=== PATIENT | male | born 1960 | race Caucasian/White ===

== ENCOUNTER → 2018-01-30 14:07 | Outpatient (CLI) | payer MEDICARE, SELFPAY ==
[2018-01-30 14:29] LABS: Basophils # 0.1 K/mm3 (0-0.2); Basophils % 1.2 % (0.1-2.0); Eosinophils # 0.4 K/mm3 (0.0-0.4); Eosinophils % 3.6 % (0.1-12.0); Hematocrit 53.5 % (42.0-52.0); Hemoglobin 16.6 g/dL (14.1-18.0); Lymphocytes # 2.6 K/mm3 (0.7-4.5); Lymphocytes % 27.2 K/mm3 (10-50); Mean Corpuscular Hemoglobin 29.3 pg (27.0-31.2); Mean Corpuscular Volume 94.4 fl (80-94); Mean Platelet Volume 7.2 fl (7.4-10.4); Monocytes # 0.4 K/mm3 (0.1-1.0); Monocytes % 4.3 % (1.7-9.3); Neutrophils # 6.1 K/mm3 (1.8-7.8); Neutrophils % 63.6 % (37.0-80.0); Platelet Count 220 K/mm3 (142-424); Red Blood Count 5.67 M/mm3 (4.60-6.20); Red Cell Distribution Width 13.6 % (11.5-17.5); White Blood Count 9.6 K/mm3 (4.8-10.8)
[2018-01-30 14:59] LABS: Anion Gap 11.8 mEq/L (5-15); Blood Urea Nitrogen 4 mg/dL (7-18); Calcium 8.6 mg/dL (8.5-10.1); Carbon Dioxide 32 mmol/L (21.0-32.0); Chloride 97 mmol/L (98-107); Creatinine,Serum 0.96 mg/dL (0.70-1.30); Estimated Glomerular Filt Rate 81 ml/min (>60); GFR (African American) 98 ML/MIN (>60); Glucose 294 mg/dL (74-106); Potassium 3.8 mmoL/L (3.5-5.1); Sodium 137 mmol/L (136-145)
== END ==
PROVIDERS: Visit Provider Surgery
DX: Z01.818 Encounter for other preprocedural examination (principal); L03.90 Cellulitis, unspecified; L02.91 Cutaneous abscess, unspecified
CPT/HCPCS: 36415; 80048; 85025; 93005

== ENCOUNTER → 2018-07-03 18:15 | Outpatient (CLI) | payer MEDICARE, SELFPAY ==
[2018-07-03 19:15] LABS: Hemoglobin A1C 8.6 % (0.0-7.0)
== END ==
PROVIDERS: Visit Provider Nurse Practitioner Family
DX: R73.9 Hyperglycemia, unspecified (principal)
CPT/HCPCS: 83036

== ENCOUNTER → 2018-09-04 07:24 | Outpatient (CLI) | payer MEDICARE, SELFPAY ==
[2018-09-05 07:49] LABS: Basophils # 0.1 K/mm3 (0-0.2); Basophils % 1.2 % (0.1-2.0); Eosinophils # 0.2 K/mm3 (0.0-0.4); Eosinophils % 2.3 % (0.1-12.0); Hematocrit 56.9 % (42.0-52.0); Hemoglobin 17.5 g/dL (14.1-18.0); Lymphocytes # 2.3 K/mm3 (0.7-4.5); Lymphocytes % 26.1 % (10-50); Mean Corpuscular HGB Conc 30.7 g/dL (31.8-35.4); Mean Corpuscular Hemoglobin 30.9 pg (27.0-31.2); Mean Corpuscular Volume 100.8 fl (80-94); Mean Platelet Volume 9.8 fl (7.4-10.4); Monocytes # 0.5 K/mm3 (0.1-1.0); Monocytes % 6.1 % (1.7-9.3); Neutrophils # 5.7 K/mm3 (1.8-7.8); Neutrophils % 64.4 % (37.0-80.0); Platelet Count 236 K/mm3 (142-424); Red Blood Count 5.64 M/mm3 (4.60-6.20); Red Cell Distribution Width 13.6 % (11.5-17.5); White Blood Count 8.8 K/mm3 (4.8-10.8)
[2018-09-05 08:12] LABS: Alanine Aminotransferase 19 U/L (12-78); Albumin Level 3.4 gm/dL (3.4-5.0); Albumin/Globulin Ratio 0.8 (1.1-1.8); Alkaline Phosphatase 138 U/L (46-116); Anion Gap 11.7 mEq/L (5-15); Aspartate Amino Transferase 11 U/L (15-37); Bilirubin,Total 0.4 mg/dL (0.2-1.0); Blood Urea Nitrogen 5 mg/dL (7-18); Calcium 9.7 mg/dL (8.5-10.1); Carbon Dioxide 33 mmol/L (21.0-32.0); Chloride 100 mmol/L (98-107); Cholesterol 289 mg/dL (140-200); Creatinine,Serum 0.91 mg/dL (0.70-1.30); Estimated Glomerular Filt Rate 86 ml/min (>60); Free T4 (Free Thyroxine) 1.06 ng/dl (0.76-1.46); GFR (African American) 104 ML/MIN (>60); Globulin 4.4 gm/dl (1.3-3.2); Glucose 248 mg/dL (74-106); HDL Cholesterol 24 mg/dL (27-67); LDL Cholesterol 209 mg/dL (0-130); Potassium 4.7 mmoL/L (3.5-5.1); Sodium 140 mmol/L (136-145); Thyroid Stimulating Hormone 1.19 uIU/ml (0.358-3.740); Total Protein,Serum 7.8 gm/dL (6.4-8.2); Triglycerides 280 mg/dL (30-200); VLDL Cholesterol 56 mg/dL (0-40)
[2018-09-05 09:40] LABS: Hemoglobin A1C 8.7 % (0.0-7.0)
[2018-09-06 09:31] LABS: Vitamin D 25 Hydroxy 6.1 ng/mL (30.0-100.0)
[2018-09-07 11:17] LABS: Folate 9.9 ng/mL (>3.0)
[2018-09-10 08:34] LABS: Vitamin B12 522 pg/mL (232-1245)
== END ==
PROVIDERS: Visit Provider Emergency Medicine
DX: E11.9 Type 2 diabetes mellitus without complications (principal); R79.89 Other specified abnormal findings of blood chemistry
CPT/HCPCS: 80053; 80061; 82607; 82652; 82746; 83036; 84439; 84443; 85025

== ENCOUNTER → 2019-01-01 17:43 | Outpatient (CLI) | payer MEDICARE, SELFPAY ==
[2019-01-01 21:57] LABS: Anion Gap 13.9 mEq/L (5-15); Blood Urea Nitrogen 7 mg/dL (7-18); Carbon Dioxide 30 mmol/L (21.0-32.0); Chloride 98 mmol/L (98-107); Creatinine,Serum 0.84 mg/dL (0.70-1.30); Estimated Glomerular Filt Rate 94 ml/min (>60); GFR (African American) 114 ML/MIN (>60); Glucose 248 mg/dL (74-106); Potassium 3.9 mmoL/L (3.5-5.1); Sodium 138 mmol/L (136-145)
== END ==
PROVIDERS: Visit Provider Emergency Medicine
DX: E11.9 Type 2 diabetes mellitus without complications (principal); Z79.84 Long term (current) use of oral hypoglycemic drugs
CPT/HCPCS: 80048; 83036

== ENCOUNTER → 2019-04-05 13:26 | Outpatient (CLI) | payer MEDICARE, MEDICAID, SELFPAY ==
--- NOTE | 2019-04-05 13:27 | CA_ITS ---
APPROVED REPORT Transit Planner: KRISTI Laterality: Bilateral Study Quality: Adequate Indications: Bruit, Hx of left endarterectomy Risk Factors Hypertension: TIA/CVA History Hyperlipidemia Diabetes Diabetes, Smoking Surgery/Intervention Endarterectomy: left Doppler Spectral Velocity Analysis ECA (R) 164.00/44.90 cm/s ECA (L) 189.00/43.40 cm/s dCCA (R) 73.90/23.60 cm/s dICA (L) 76.90/27.60 cm/s pCCA (R) 77.80/19.60 cm/s Anil (L) 46.80/21.70 cm/s pICA (L) 64.30/16.70 cm/s dCCA (L) 81.40/35.10 cm/s pCCA (L) 103.00/26.30 cm/s Vert (L) 57.50/29.50 cm/s ICA/CCA 0.94 Findings Study shows 100% occlusion involving the right internal carotid artery. No change from the study on 08/31/11. No color flow or doppler waveform seen right vertebral artery, ? occlusion. Left common and internal carotid artery shows abnormal colorflow suggesting possible disease, doppler waveforms are normal. Recommend futher testing. Electronically signed by : Juan Dumont MD 04/10/2019 19:42:35
== END ==
PROVIDERS: PCP Emergency Medicine; Visit Provider Emergency Medicine
DX: R09.89 Other specified symptoms and signs involving the circulatory and respiratory systems (principal)
CPT/HCPCS: 93880

== ENCOUNTER → 2019-04-19 11:38 | Outpatient (CLI) | payer MEDICARE, MEDICAID, SELFPAY ==
--- NOTE | 2019-04-19 11:39 | MR_ITS ---
PROCEDURE: MR HEAD/BRAIN WO CON CLINICAL INDICATION: post head contusion Headache and dizziness following injury, memory loss COMPARISON: CT HEAD/BRAIN WO CON from 04/04/2019 TECHNIQUE: Routine multiplanar multi echo sequences are performed without gadolinium enhancement. FINDINGS: No midline shift, mass effect, intracranial hemorrhage, or hydrocephalus. No evidence of acute infarction. There are scattered periventricular and subcortical T2 white matter hyperintensities. A few of these are oriented perpendicular to the longitudinal plane of the lateral ventricles. The these areas do not demonstrate any restricted diffusion. The cerebellopontine angles, cerebellum, and brainstem are unremarkable. The pituitary, corpus callosum, optic chiasm, and craniocervical junction have an unremarkable appearance. No mastoid effusion or sinus air-fluid level. IMPRESSION: 1. There are scattered periventricular and subcortical T2 white matter hyperintensities. This may represent periventricular ischemic gliotic change from microvascular disease. A few of these are oriented perpendicular to the longitudinal plane of the lateral ventricles which could also be seen with multiple sclerosis. Please correlate with clinical parameters. Migraine headache is an additional consideration.. 2. Otherwise negative MRI of the brain without contrast Dictated by: Juan Dumont MD 04/20/2019 19:28 Electronically signed by Juan Dumont MD in [place] 04/22/2019 06:31
--- NOTE | 2019-04-19 11:39 | MR_ITS ---
PROCEDURE: MR CERVICAL SPINE WO CON CLINICAL INDICATION: neck pain Left-sided neck pain, left arm pain COMPARISON: CT CERVICAL SPINE WO CON from 04/04/2019 TECHNIQUE: Standard multiplanar multiecho sequences are performed without contrast. 3-D MIP and myelographic images are also rendered and reviewed FINDINGS: There straightening of the cervical lordosis. The cranial cervical junction has an unremarkable appearance. C2-C3: Mild bilateral foraminal narrowing from uncovertebral hypertrophy. There narrowing of the canal at 10 mm. C3-C4: Degenerate disc disease with bulging disc with canal stenosis of 9 mm. There is minimal contour deformity of the cord anteriorly. Moderate bilateral foraminal narrowing from uncovertebral hypertrophy greater on the left. C4-C5: Postsurgical changes with fusion of the vertebral body at C4-C5. Posterior osteophytes are present at this level. There is canal stenosis of 9 mm with. There is bilateral lateral recess and foraminal narrowing. C5-C6: Degenerate disc disease with bulging disc with canal stenosis of 8 mm with severe bilateral lateral recess and foraminal narrowing C6-C7: There is a small right paracentral/foraminal disc protrusion causing right lateral recess and foraminal narrowing. C7-T1: Unremarkable. IMPRESSION: Abnormal MRI of the cervical spine with multilevel canal stenosis lateral recess and foraminal narrowing. Please see above for detailed description at each level. Small right paracentral/foraminal disc protrusion at C6-C7 Dictated by: Juan Dumont MD 04/21/2019 07:06 Electronically signed by Juan Dumont MD in [place] 04/22/2019 06:44
== END ==
PROVIDERS: PCP Emergency Medicine; Visit Provider Emergency Medicine
DX: S09.90XA Unspecified injury of head, initial encounter (principal); S16.1XXA Strain of muscle, fascia and tendon at neck level, initial encounter
CPT/HCPCS: 70551; 72141; 76376

== ENCOUNTER → 2019-05-01 08:12 | Outpatient (CLI) | payer MEDICARE, MEDICAID, SELFPAY ==
--- NOTE | 2019-05-01 08:13 | CA_ITS ---
APPROVED REPORT EXAM: Comprehensive 2D, Doppler, and color-flow Echocardiogram Sterile Tech: Silva Mario CRT Ht: 3 ft 6 in Wt: 147lbs BSA: 1.26 BP: 120/76 mmHg Indications: Shortness of Breath, CAD, COPD, smoker, DM, HTN, hyperlipidemia 2D Dimensions LVOT 1.80 cm (M/F) 1.5-2.5 M-Mode Dimensions RVDd 2.60 cm (0.9-2.6) LA Diam 3.30 cm (1.9-4.0) LVDd 4.40 cm (3.5-5.7) Ao Diam 3.30 cm (2.0-3.7) LVDs 3.10 cm (3.5-5.7) AV Cusp 1.60 cm (1.5-2.6) IVSd 1.20 cm (0.6-1.1) PWd 0.90 cm (0.6-1.1) EF (Teich) 56.80% FS 29.50% EDV (Teich) 87.70 mL ESV (Teich) 37.90 mL LV Diastology E/A Ratio 0.90 MED E' 5.65 (< 7 cm/sec) E'/MED E' Ratio 13.30 (>14) LAT E' 6.73 (<10 cm/sec) E/LAT E' Ratio 11.10 (>14) Aortic Valve AoV Peak Anibal. 187.00 (50-130 cm/s) AO Peak GR. 14.00 mmHg Mitral Valve MV E Max Anibal. 75.00 (40-130 cm/s) MV A Velocity 82.40 (40-130 cm/s) E/A Ratio 0.90 Pulmonary Valve MO End VMAX 143.00 cm/s PA Accel Time 183.00 (>120 msec) Tricuspid Valve TR P. Velocity 164.00 cm/s Left Ventricle Left atrium is mildly enlarged, left ventricle is normal size, mild concentric left ventricular hypertrophy, visually estimated ejection fraction 55% with no regional wall motion abnormality, grade 1 diastolic dysfunction seen with tissue Doppler evidence of raise left atrial pressure. Right Ventricle Right atrium and right ventricle mildly enlarged with normal contractility. Aortic Valve Aortic valve is minimally thickened and fibrosed, there is no aortic stenosis, there is no aortic insufficiency. Mitral Valve Mitral valve is grossly normal, there is mild mitral regurgitation. Tricuspid Valve Tricuspid valve is grossly normal, there is mild tricuspid regurgitation. Pulmonic Valve Pulmonic valve is poorly visualized. Great Vessels Aortic root is normal size. Pericardium No significant pericardial effusion noted. Conclusion 1. Mild biatrial enlargement, normal left ventricular size, mild concentric left ventricular hypertrophy, visually estimated ejection fraction 55% with no regional wall motion abnormality. Grade 1 diastolic dysfunction seen with tissue Doppler evidence of raise left atrial pressure. 2. Mildly enlarged right ventricle with normal contractility. 3. Mild mitral and tricuspid regurgitation. 4. No significant pericardial effusion noted. Electronically signed by : Garland Reyna, 05/03/2019 12:09:59
--- NOTE | 2019-05-01 08:32 | CT_ITS ---
Procedure: CT ANGIO NECK CLINICAL HISTORY: carotid artery stenosis COMPARISON: Duplex Doppler carotid ultrasound from 04/05/2019. TECHNIQUE: IV Contrast: 100ml Optiray 350 axial source images are obtained followed by sagittal and coronal MIP images Axial images obtained with sagittal and coronal reformats. All CT scans at the facility use one or more dose reduction, viz: automated exposure control, ma/kV adjustment per patient size (including targeted exams where dose is matched to indication, i.e. head), or iterative reconstruction technique. FINDINGS: Vessels from the aortic arch show a few small plaques near the origin without stenosis. Left carotid circulation is normal without stenosis or plaque formation. Right carotid circulation shows right CCA is unremarkable. There are calcified plaques of the proximal right ICA with subsequent occlusion of the right cervical ICA. At the skull base there is faint opacification of the cavernous right ICA likely from collaterals and retrograde filling from the right ophthalmic artery. 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 Right ECA is patent. Both vertebral arteries are symmetrical in size and patent with a few small nonstenotic plaques at the mid right vertebral artery area. The soft tissues of the neck are unremarkable. There is no acute osseous process. The visualized upper lung whalen are clear. 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 Left carotid bifurcation shows no atherosclerotic disease or stenosis. Dictated by: Trung Larios 05/01/2019 12:53 Electronically signed by Trung Larios in [place] 05/01/2019 12:53
[2019-05-01 08:38] LABS: Blood Urea Nitrogen 6 mg/dL (7-18); Creatinine,Serum 0.97 mg/dL (0.70-1.30); Estimated Glomerular Filt Rate 79 ml/min (>60); GFR (African American) 96 ML/MIN (>60)
== END ==
PROVIDERS: PCP Emergency Medicine; Visit Provider Urology
DX: E11.69 Type 2 diabetes mellitus with other specified complication (principal); E78.5 Hyperlipidemia, unspecified; F17.200 Nicotine dependence, unspecified, uncomplicated; I25.118 Atherosclerotic heart disease of native coronary artery with other forms of angina pectoris; I65.23 Occlusion and stenosis of bilateral carotid arteries; J44.9 Chronic obstructive pulmonary disease, unspecified; R06.09 Other forms of dyspnea; R07.89 Other chest pain; Z89.511 Acquired absence of right leg below knee; Z89.512 Acquired absence of left leg below knee; Z79.84 Long term (current) use of oral hypoglycemic drugs
CPT/HCPCS: 36415; 70498; 82565; 84520; 93306; Q9967

== ENCOUNTER → 2019-05-14 13:53 | Outpatient (CLI) | payer MEDICARE, MEDICAID, SELFPAY ==
[2019-05-15 20:28] LABS: Amphetamine/Metha Screen,Urine Negative ng/mL (<1000); Barbiturates Screen,Urine Negative ng/mL (<200); Benzodiazepines Screen,Urine Negative ng/mL (<200); Cannabinoid Screen,Urine Negative ng/mL (<50); Cocaine Screen,Urine Negative ng/mL (<300); Methadone Screen,Urine Negative ng/mL (<300); Opiate Screen,Urine Negative ng/mL (<300); Phencyclidine Screen,Urine Negative ng/mL (<25)
[2019-05-17 17:26] LABS: Microalbumin, Urine <3.0 ug/mL (Not Estab.)
== END ==
PROVIDERS: Visit Provider Emergency Medicine
DX: E11.9 Type 2 diabetes mellitus without complications (principal); G89.29 Other chronic pain; M54.2 Cervicalgia; M54.9 Dorsalgia, unspecified; Z79.84 Long term (current) use of oral hypoglycemic drugs
CPT/HCPCS: 80305; 82043

== ENCOUNTER → 2019-05-22 07:16 | Outpatient (CLI) | payer MEDICARE, MEDICAID, SELFPAY ==
--- NOTE | 2019-05-22 | CA_ITS ---
APPROVED REPORT Exam: Pharmacologic Technologist: Antonia Dominguez Ht: 3 ft 6 in Wt: 150 lbs BSA: 1.28 m2 HR: 74 bpm BP: 133/77 mmHg Indications: Angina Medical History Medications: Lisinopril,,,,, Aspirin,,,,, Metformin,,,,, Gabapentin,,,,, Atorvastatin,,,,, Glipizide,,,,, Lansoprazole,,,,, Diclofenac,,,,, OxYCODONE,,,,, Budesonide,,,,, LiNAGLIPTIN,,,,, Ephalexin,,,,, Stress Test Details Test: LEXISCAN HR Resting HR: 78 bpm Max Heart Rate (APMHR): 162 bpm Max HR Achieved: 105 bpm Target HR (85% APMHR): 137 bpm % of APMHR: 64 Recovery HR: 83 bpm BP Resting BP: 133.0/77.0 mmHg Max BP: 153.0/85.0 mmHg Recovery BP: 144.0/82.0 mmHg ECG Clinical Exercise duration: 04:03 min Highest Stage Achieved: Exercise capacity: 1.0 METs Stress ECG Conclusion Resting ECG: Normal sinus rhythm, right axis deviation. Symptoms: Shortness of breath, malaise, nausea, stomach cramps. No chestpain. Arrhythmias/Ectopy: Rare PVC ST-T Changes: No significant changes. Conclusion: Unremarkable Lexiscan stress. Myoview images reported separatrely. Electronically signed by : Jb Spencer, 05/28/2019 15:03:48
--- NOTE | 2019-05-22 07:17 | NM_ITS ---
APPROVED REPORT Exam: Nuclear Stress Test Indication: CAD, HTN, D.M., HYPERLIPIDEMIA, TOB USE, FM. HX., C.P., SOB, FATIQUE Patient Location: Outpatient Stress Tech: Antonia Dominguez [place] Tech:Jayne Sandoval, ARRT RT (R)(N)(M) Ht: 3 ft 1 in Wt: 150 lbs HR: 74 bpm BP: 133/77 mmHg BSA: 1.16 m2 BMI: 77.0 History: CAD, HTN, D.M., HYPERLIPIDEMIA, TOB USE, FM. HX., C.P., SOB, FATIENE Procedure: Patient received a 0.4 mg of intravenous Lexiscan, resting heart rate 74 bpm, resting blood pressure 133/77 mmHg, with Lexiscan maximum heart rate achived was 98 bpm which is % of the maximum predicted heart rate and blood pressure was 148/87 mmHg. Cardiac Stress and Resting SPECT Images: Cardiac Stress and Resting SPECT images were obtained using technetium 99m Myoview 30.5 mCi stress and 10.62 mCi at rest. The ejection fraction is 56% which is at lower limits of normal. There is decreased activity involving the a apex on the stress images which become normal on the delayed images consistent with an area of ischemia. No fixed defects are evident. Conclusion: 1. Normal ejection fraction of 56% 2. Ischemic changes within the apex. Electronically signed by : Juan Dumont MD 05/23/2019 11:39:04
--- NOTE | 2019-05-22 08:00 | HMH.ITSHM ---
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 []OXYCODONE METFORMIN LANSOPRAZOLE GLIPIZIDE GABAPENTIN DICLOFENAC CEPHALEXIN BUPRENORPHINE BUDESONIDE ATORVASTATIN ASA LISINOPRIL LINAGLIPTIN
== END ==
PROVIDERS: PCP Emergency Medicine; Visit Provider Internal Medicine
DX: I20.8 Other forms of angina pectoris; E11.69 Type 2 diabetes mellitus with other specified complication; E78.5 Hyperlipidemia, unspecified; H53.8 Other visual disturbances; I65.29 Occlusion and stenosis of unspecified carotid artery; R42 Dizziness and giddiness; F17.200 Nicotine dependence, unspecified, uncomplicated; Z79.84 Long term (current) use of oral hypoglycemic drugs
CPT/HCPCS: 78452; 93017; A9502; J2785

== ENCOUNTER → 2019-06-04 17:03 | Outpatient (CLI) | payer MEDICARE, MEDICAID, SELFPAY ==
[2019-06-04 18:56] LABS: Amphetamine/Metha Screen,Urine Negative ng/mL (<1000); Barbiturates Screen,Urine Negative ng/mL (<200); Benzodiazepines Screen,Urine Negative ng/mL (<200); Cannabinoid Screen,Urine Negative ng/mL (<50); Cocaine Screen,Urine Negative ng/mL (<300); Methadone Screen,Urine Negative ng/mL (<300); Opiate Screen,Urine Negative ng/mL (<300); Phencyclidine Screen,Urine Negative ng/mL (<25)
== END ==
PROVIDERS: Visit Provider Emergency Medicine
DX: G89.29 Other chronic pain (principal); M54.2 Cervicalgia; M54.9 Dorsalgia, unspecified
CPT/HCPCS: 80305

== ENCOUNTER → 2019-07-02 17:01 | Outpatient (CLI) | payer MEDICARE, MEDICAID, SELFPAY ==
[2019-07-02 20:04] LABS: Amphetamine/Metha Screen,Urine Negative ng/mL (<1000); Barbiturates Screen,Urine Negative ng/mL (<200); Benzodiazepines Screen,Urine Negative ng/mL (<200); Cannabinoid Screen,Urine Negative ng/mL (<50); Cocaine Screen,Urine Negative ng/mL (<300); Methadone Screen,Urine Negative ng/mL (<300); Opiate Screen,Urine Positive ng/mL (<300); Phencyclidine Screen,Urine Negative ng/mL (<25)
[2019-07-09 03:36] LABS: Oxycodone Positive (.); Oxymorphone Negative (Cutoff=100)
[2019-07-09 14:46] LABS: Oxycodone Confirm >3000 ng/mL (Cutoff=100)
== END ==
PROVIDERS: Visit Provider Emergency Medicine
DX: G89.29 Other chronic pain (principal); M54.2 Cervicalgia; M54.9 Dorsalgia, unspecified; Z79.899 Other long term (current) drug therapy
CPT/HCPCS: 80305; 80365

== ENCOUNTER 2019-08-01 13:43 | Outpatient (RCR) | payer MEDICARE, MEDICAID, SELFPAY | END 2019-08-01 13:45 | disposition home or self-care (01) | LOC: PT 13:43 | PROVIDERS: PCP Emergency Medicine; Visit Provider Physical Medicine & Rehabilitation | DX: M54.12 Radiculopathy, cervical region (principal); M50.30 Other cervical disc degeneration, unspecified cervical region; M48.02 Spinal stenosis, cervical region | CPT/HCPCS: 97110; 97163 ==

== ENCOUNTER → 2019-08-08 13:41 | Outpatient (CLI) | payer MEDICARE, MEDICAID, SELFPAY ==
--- NOTE | 2019-08-08 13:46 | XR_ITS ---
PROCEDURE: XR LUMBAR SPINE 6V W BENDING CLINICAL INDICATION: LBP COMPARISON: No exams were available for comparison FINDINGS: There is normal alignment. No fracture or dislocation. No lytic or blastic change. There is straightening of the lumbar lordosis which could be due to patient positioning or muscle spasm. There extensive vascular calcification. IMPRESSION: Straightening of lordosis otherwise negative Dictated by: Juan Dumont MD 08/08/2019 14:35 Electronically signed by Juan Dumont MD in [place] 08/08/2019 14:35
== END ==
PROVIDERS: PCP Emergency Medicine; Visit Provider Physical Medicine & Rehabilitation
DX: M47.817 Spondylosis without myelopathy or radiculopathy, lumbosacral region (principal)
CPT/HCPCS: 72114

== ENCOUNTER → 2019-09-23 13:33 | Outpatient (CLI) | payer MEDICARE, MEDICAID, SELFPAY ==
[2019-09-24 10:28] LABS: Hematocrit 56.8 % (42.0-52.0); Hemoglobin 17.8 g/dL (14.1-18.0); Mean Corpuscular HGB Conc 31.4 g/dL (31.8-35.4); Mean Corpuscular Hemoglobin 32.4 pg (27.0-31.2); Mean Corpuscular Volume 103.1 fl (80-94); Mean Platelet Volume 10.5 fl (7.4-10.4); Platelet Count 249 K/mm3 (142-424); Red Blood Count 5.51 M/mm3 (4.60-6.20); Red Cell Distribution Width 13.6 % (11.5-17.5); White Blood Count 10.4 K/mm3 (4.8-10.8)
[2019-09-24 10:29] LABS: Basophils % 1.3 % (0.1-2.0); Eosinophils % 2.9 % (0.1-12.0); Neutrophils # 6.5 K/mm3 (1.8-7.8); Neutrophils % 62.2 % (37.0-80.0)
[2019-09-24 10:30] LABS: Basophils # 0.1 K/mm3 (0-0.2); Lymphocytes # 2.8 K/mm3 (0.7-4.5); Lymphocytes % 28.5 % (10-50); Monocytes # 0.5 K/mm3 (0.1-1.0)
[2019-09-24 10:31] LABS: Eosinophils # 0.3 K/mm3 (0.0-0.4)
[2019-09-24 11:12] LABS: Chloride 96 mmol/L (98-107)
[2019-09-24 11:13] LABS: Potassium 4.1 mmoL/L (3.5-5.1); Sodium 137 mmol/L (136-145)
[2019-09-24 11:15] LABS: Alanine Aminotransferase 13 U/L (12-78); Anion Gap 11.1 mEq/L (5-15); Aspartate Amino Transferase 21 U/L (17-59); Blood Urea Nitrogen 7 mg/dl (9-20); Carbon Dioxide 34 mmol/L (22.0-30.0); Estimated Glomerular Filt Rate 115 ml/min (>60); GFR (African American) 140 ML/MIN (>60)
[2019-09-24 11:16] LABS: Albumin Level 4.1 g/dl (3.5-5.0); Alkaline Phosphatase 118 U/L (38-126); Bilirubin,Total 0.5 mg/dl (0.2-1.3); Calcium 10.1 mg/dl (8.4-10.2); Chol/HDL Ratio 12.1 (1-3.5); Cholesterol 315 mg/dl (140-200); Globulin 4.1 g/dL (1.3-3.2); Glucose 302 mg/dl (74-100); HDL Cholesterol 26 mg/dl (40-60); Total Protein,Serum 8.2 g/dl (6.3-8.2); Triglycerides 298 mg/dl (30-150); VLDL Cholesterol 60 mg/dL (0-40)
[2019-09-24 11:34] LABS: Free T4 (Free Thyroxine) 1.14 ng/dl (0.78-2.19)
[2019-09-24 11:47] LABS: Thyroid Stimulating Hormone 1.47 uIU/mL (0.465-4.68)
[2019-09-24 12:23] LABS: Creatinine, Urine 189.5 mg/dL (Not Estab.); Microalbumin, Urine 31.9 ug/mL (Not Estab.)
[2019-09-24 13:55] LABS: Hemoglobin A1C 10.1 % (4.0-6.0)
== END ==
PROVIDERS: Visit Provider Emergency Medicine
DX: E03.9 Hypothyroidism, unspecified; E11.69 Type 2 diabetes mellitus with other specified complication; E78.5 Hyperlipidemia, unspecified; K59.00 Constipation, unspecified; Z79.84 Long term (current) use of oral hypoglycemic drugs
CPT/HCPCS: 80053; 80061; 82043; 82570; 83036; 84439; 84443; 85025

== ENCOUNTER → 2019-12-18 13:12 | Outpatient (CLI) | payer MEDICARE, MEDICAID, SELFPAY ==
--- NOTE | 2019-12-18 13:13 | CA_ITS ---
APPROVED REPORT Prescriptionist: CT Laterality: Bilateral Study Quality: Good Indications: known christiana Risk Factors Hypertension: Hyperlipidemia Diabetes PAD Smoking bilateral ATK amputation Surgery/Intervention Endarterectomy: left Doppler Spectral Velocity Analysis ECA (R) 148.10/40.00 cm/s ECA (L) 129.30/20.00 cm/s dCCA (R) 78.80/17.10 cm/s dICA (L) 92.50/42.80 cm/s pCCA (R) 82.30/18.00 cm/s Anil (L) 54.90/27.00 cm/s pICA (L) 81.90/26.00 cm/s Vert (R) 9.60/5.60 cm/s dCCA (L) 80.80/32.20 cm/s pCCA (L) 95.20/32.90 cm/s Vert (L) 95.00/38.90 cm/s ICA/CCA 1.20 Conclusion Duplex evaluation demonstrates occlusion for the right internal carotid artery. Known occlusion. Duplex evaluation demonstrates stenosis of the left proximal internal carotid artery <20% with PSV <140 cm/sec, EDV <100 cm/sec, and IC/CC Ratio <4.0. Duplex evaluation demonstrates antegrade flow of the bilateral Vertebral Arteries. Electronically signed by : Juan Dumont MD 12/18/2019 17:43:36
== END ==
PROVIDERS: PCP Emergency Medicine; Visit Provider Nurse Practitioner Family
DX: E11.69 Type 2 diabetes mellitus with other specified complication (principal); E78.5 Hyperlipidemia, unspecified; F17.200 Nicotine dependence, unspecified, uncomplicated; I10 Essential (primary) hypertension; I25.10 Atherosclerotic heart disease of native coronary artery without angina pectoris; I65.23 Occlusion and stenosis of bilateral carotid arteries; Z79.4 Long term (current) use of insulin
CPT/HCPCS: 93880

== ENCOUNTER 2020-01-08 14:22 | Emergency (ER) | payer MEDICARE, MEDICAID, SELFPAY ==
[2020-01-08 14:24] VITALS: BP 144/76; PULSE 78; RESP 18; O2SAT 96; BMI 64.5
--- NOTE | 2020-01-08 14:51 | PC.NURSE ---
lab notified of COVID testing
[2020-01-08 14:58] VITALS: BP 144/76; PULSE 78; RESP 18; TEMP 37.1; O2SAT 96
--- NOTE | 2020-01-08 14:59 | HMH.EDUTC ---
[facility] [place] Disposition Clinical Impression: Thrush of mouth and esophagus Disposition: Home, Self-Care Condition on Discharge: Good Instructions: DI for Thrush, Thrush-Adult Additional Instructions: Use the Nystatin Swish and Swallow as directed. I sent in refills because you will probably need this medicine in the future too. Follow up with your regular doctor. GO TO THE ER FOR ANY WORSENING SYMPTOMS OR CONCERNS Prescriptions: Nystatin [Nystatin Susp 500,000 Units/5mL Udc] 5 ml PO QID 7 Days #240 ml Transmission Status: Received by [facility] Referrals: Anup Vaughn MD [Primary Care Provider] - Time of Disposition: 15:03 Medical Decision Making - Medical Records Medical records reviewed: No: I reviewed the patient's medical records. - Jd Inquiry Pt receiving controlled substance: No Vital Signs: 01/08/20 14:24 01/08/20 14:58 Temperature 98.7 F Temperature Source Oral Pulse Rate 78 Pulse Rate [Radial] 78 Respiratory Rate 18 18 Blood Pressure 144/76 H Blood Pressure [Right Arm] 144/76 H Blood Pressure Mean [Right Arm] 98 Blood Pressure Source Automatic Cuff Blood Pressure Source [Right Arm] Automatic Cuff Blood Pressure Position Sitting Blood Pressure Position [Right Arm] Sitting 02 Sat by Pulse Oximetry 96 Oxygen Delivery Method Room Air Room Air - Lab Data Lab Results 01/08/20 14:47: Strep Scn Rapid Clinic Negative Orders (Tests/Meds): ORDERS Category Date Time Status SARS-CoV-2, SASHA Stat Lab 01/08/20 15:00 Received Strep Screen Confirmation Stat Micro 01/08/20 14:47 Received [facility] [place] HPI - General Stated complaint: soar throat thrush in mouth Time Seen by Provider: 01/08/20 14:30 Mode of Arrival: Wheelchair Source of Information: Patient Limitations: No Limitations Description of Symptoms (Recalled from Triage Doc. by RN): sore throat, states that his pain management doctor cancelled his appointment wanting him tested for COVID HEENT Symptoms (Recalled from RN notes): Yes Resp Symptoms (Recalled from RN notes): No Skin Symptoms (Recalled from RN notes): No MS Symptoms (Recalled from RN notes): No Functional Status (Recalled from RN notes): wnl - History of Present Illness Provider Complaint: He states that he thinks he has thrush. He has had it before and he has similar symptoms now. He has tongue and throat irritation. He did have a whitish coating on parts of the inside of his mouth. He has copd and his inhaler has caused this before. - Related Data Home Medications Medication Instructions Recorded Confirmed oxycodone 15 mg tablet 15 mg PO QID tab 09/23/19 12/17/19 Pen Needle, Diabetic, Safety See Rx Instructions .ROUTE 10/03/19 12/17/19 [Assure ID Pen Needle] .MEDSUPPLY Previous Rx's Medication Instructions Recorded aspirin 81 mg tablet,delayed 81 mg PO DAILY #90 tab 01/10/18 release diclofenac sodium 1 % topical gel 2 g TOPICAL QID #100 g 04/29/19 lidocaine 5 % topical patch 1 patch TOPICAL DAILY #15 each 04/29/19 budesonide-formoterol HFA 80 2 puff INHALATION BID #10.2 g 09/23/19 mcg-4.5 mcg/actuation aerosol inhaler nystatin 100,000 unit/mL oral 1 ml BUCCAL DAILY #200 ml 09/23/19 suspension glipizide 10 mg tablet, extended 10 mg PO BID #180 tab 09/27/19 release 24 hr insulin glargine 100 unit/mL (3 10 unit SQ QHS #15 ml 09/27/19 mL) subcutaneous pen blood sugar diagnostic See Rx Instructions .ROUTE 10/01/19 .MEDSUPPLY #100 each blood-glucose meter See Rx Instructions .ROUTE 10/01/19 .MEDSUPPLY #1 each bisoprolol fumarate 10 mg tablet 10 mg PO BID #60 tab 10/07/19 clopidogrel 75 mg tablet 75 mg PO DAILY #30 tab 10/07/19 gabapentin 800 mg tablet 800 mg PO QID #120 tab 12/17/19 atorvastatin 80 mg tablet 80 mg PO DAILY #30 tab 12/19/19 lansoprazole 30 mg capsule,delayed 30 mg PO DAILY PRN #90 cap 12/19/19 release linagliptin 5 mg tablet 5 mg PO DAILY #90 tab 12/19/19 lisinopril 2.5 mg tablet
[2020-01-08 15:18] LABS: UTC Strep Screen (Rapid) Negative (Negative)
[2020-01-11 06:08] LABS: Covid-19 Nasal PCR Sendout Lex Not Detected
== END 2020-01-08 15:07 | disposition home or self-care (01) ==
PROVIDERS: Emergency Provider Nurse Practitioner Family; PCP Emergency Medicine
DX: B37.81 Candidal esophagitis (principal); J44.9 Chronic obstructive pulmonary disease, unspecified; F41.9 Anxiety disorder, unspecified; K21.9 Gastro-esophageal reflux disease without esophagitis; I10 Essential (primary) hypertension; E78.5 Hyperlipidemia, unspecified; E11.9 Type 2 diabetes mellitus without complications; I25.10 Atherosclerotic heart disease of native coronary artery without angina pectoris; F17.210 Nicotine dependence, cigarettes, uncomplicated; Z90.09 Acquired absence of other part of head and neck; Z90.49 Acquired absence of other specified parts of digestive tract; Z89.512 Acquired absence of left leg below knee; Z89.511 Acquired absence of right leg below knee; J02.9 Acute pharyngitis, unspecified
CPT/HCPCS: G0463; 87880; 99202; U0004

== ENCOUNTER → 2020-02-11 17:48 | Outpatient (CLI) | payer MEDICARE, MEDICAID, SELFPAY ==
[2020-02-11 19:08] LABS: Chol/HDL Ratio 6.4 (1-3.5); Cholesterol 199 mg/dl (140-200); HDL Cholesterol 31 mg/dl (40-60); Triglycerides 140 mg/dl (30-150); VLDL Cholesterol 28 mg/dL (0-40)
[2020-02-11 19:19] LABS: Direct LDL Cholesterol 149.12 mg/dL (100-129)
[2020-02-11 20:03] LABS: Microalbumin < 6.000 mg/L (0-16.7)
[2020-02-11 20:12] LABS: Creatinine,Urine Random 43 mg/dL (Not Estab.)
[2020-02-11 20:16] LABS: Hemoglobin A1C 7.2 % (4.0-6.0)
== END ==
PROVIDERS: Visit Provider Emergency Medicine
DX: E11.69 Type 2 diabetes mellitus with other specified complication; E78.5 Hyperlipidemia, unspecified
CPT/HCPCS: 80061; 82043; 82570; 83036

== ENCOUNTER → 2021-01-16 11:48 | Outpatient (CLI) | payer MEDICARE, MEDICAID, SELFPAY ==
--- NOTE | 2021-01-16 | XR_ITS ---
PROCEDURE INFORMATION: Exam: XR Lumbosacral Spine Exam date and time: 01/16/2021 12:00 AM Age: 60 years old Clinical indication: Low back pain; Patient HX: Lower back pain resulting from a sign falling on patient and gradually pain worsened, no spine surgery, stent in lower abdomen TECHNIQUE: Imaging protocol: XR of the lumbosacral spine. Views: 4 or 5 views. COMPARISON: CR XR LUMBAR SPINE 6V W BENDING 08/08/2019 1:52 PM FINDINGS: Bones/joints: The lumbar spine demonstrates mild degenerative changes at multiple levels. The facet joints demonstrate mild degenerative hypertrophy and sclerosis. There is no evidence of acute fracture. Soft tissues: Unremarkable. Intraperitoneal space: There has been a cholecystectomy. Gastrointestinal tract: A large amount of stool is noted throughout the colon. Vasculature: The vasculature demonstrates diffuse moderate atherosclerotic calcification. Vascular stents are in place. IMPRESSION: 1. The lumbar spine demonstrates mild degenerative changes at multiple levels. 2. No evidence of acute fracture. 3. A large amount of stool is noted throughout the colon.
== END ==
PROVIDERS: PCP Emergency Medicine; Referring Provider Physical Medicine & Rehabilitation; Visit Provider Physical Medicine & Rehabilitation
DX: M47.817 Spondylosis without myelopathy or radiculopathy, lumbosacral region (principal)
CPT/HCPCS: 72110

== ENCOUNTER → 2021-03-10 10:41 | Outpatient (CLI) | payer MEDICARE, MEDICAID, SELFPAY ==
--- NOTE | 2021-03-10 10:43 | CA_ITS ---
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 Surgery/Intervention Endarterectomy: left Doppler Spectral Velocity Analysis ECA (R) 186.10/ cm/s ECA (L) 143.50/ cm/s dCCA (R) 105.30/20.50 cm/s dICA (L) 48.50/24.30 cm/s pCCA (R) 80.70/9.60 cm/s Anil (L) 46.60/20.80 cm/s pICA (L) 55.50/17.30 cm/s Vert (R) 42.40/ cm/s dCCA (L) 72.70/23.50 cm/s pCCA (L) 97.30/20.30 cm/s Vert (L) 62.90/ cm/s ICA/CCA 0.76 Findings Duplex evaluation demonstrates occlusion for the right proximal internal carotid artery., known occlusion. Duplex evaluation demonstrates stenosis of the left proximal internal carotid artery <20%. Duplex evaluation demonstrates antegrade flow of the bilateral Vertebral Arteries. Conclusion Duplex evaluation demonstrates occlusion for the right proximal internal carotid artery., known occlusion. Duplex evaluation demonstrates stenosis of the left proximal internal carotid artery <20%. Duplex evaluation demonstrates antegrade flow of the bilateral Vertebral Arteries. Electronically signed by : Juan Dumont MD 03/10/2021 16:07:10
== END ==
PROVIDERS: PCP Emergency Medicine; Visit Provider Nurse Practitioner Family
DX: E11.9 Type 2 diabetes mellitus without complications (principal); I10 Essential (primary) hypertension; I65.23 Occlusion and stenosis of bilateral carotid arteries; J44.9 Chronic obstructive pulmonary disease, unspecified; M50.30 Other cervical disc degeneration, unspecified cervical region; Z89.511 Acquired absence of right leg below knee; Z89.512 Acquired absence of left leg below knee; Z79.84 Long term (current) use of oral hypoglycemic drugs
CPT/HCPCS: 93880

== ENCOUNTER → 2021-07-10 13:29 | Outpatient (CLI) | payer MEDICARE, SELFPAY ==
--- NOTE | 2021-07-10 14:19 | XR_ITS ---
PROCEDURE INFORMATION: Exam: XR Lumbosacral Spine Exam date and time: 07/10/2021 2:19 PM Age: 61 years old Clinical indication: Low back pain; Patient HX: Patient going to doctor Thursday 07/12; Additional info: Lumbosacral spondylosis without myelopathy TECHNIQUE: Imaging protocol: XR of the lumbosacral spine. Views: 4 or 5 views. COMPARISON: CR XR LUMBAR SPINE MIN 4V 01/16/2021 11:51 AM FINDINGS: Bones/joints: Normal anatomic alignment. Vertebral body heights are well preserved. There is no significant disc space narrowing. Tiny multilevel anterior osteophytes are appreciated. The spinal canal is patent. Mild diffuse facet joint hypertrophy. No aggressive osseous lesions. No pars interarticularis defects are appreciated. Soft tissues: Multiple surgical clips project at the level of the pelvis. Intraperitoneal space: Surgical clips are present in the right upper quadrant, consistent with previous cholecystectomy. Gastrointestinal tract: Nonobstructive bowel gas pattern. There is moderately excessive colonic stool content. Vasculature: Vascular stent, presumably in the left renal artery. Vascular stents in the bilateral iliac arteries. Other findings: There is no evidence of acutely displaced fractures. There is no evidence of joint dislocation. IMPRESSION: MILD MULTILEVEL DEGENERATIVE CHANGES WITHOUT ACUTE SKELETAL PATHOLOGY.
== END ==
PROVIDERS: PCP Emergency Medicine; Visit Provider Physical Medicine & Rehabilitation
DX: M47.817 Spondylosis without myelopathy or radiculopathy, lumbosacral region (principal)
CPT/HCPCS: 72110

== ENCOUNTER 2021-10-03 18:08 | Inpatient (IN) | payer MEDICARE, MEDICAID, SELFPAY ==
[2021-10-03] VITALS (14 sets, daily range): BP systolic 101–170; BP diastolic 35–100; PULSE 84–130; RESP 16–20; TEMP 36.7–36.9; O2SAT 92–98; BMI 25.0; BMI 23.5; BMI 25.9
--- NOTE | 2021-10-03 | IR_ITS ---
APPROVED REPORT Patient Location: [facility] [employer] Developer: CAITLIN Cobos RT (R) PROCEDURES Left and right coronary angiography Successful balloon angioplasty and stenting of a subtotal mid LAD occlusion reduced to 0% with ELGIN-3 flow utilizing a 2.5 into 18 mm resolute drug-eluting stent INDICATION STEMI anterior wall Informed consent was obtained prior to the procedure. COMPLICATIONS None Estimated Blood Loss: Less than 10 ML TECHNIQUE One percent lidocaine was used to anesthetize the right groin. The right femoral artery was accessed via the Seldinger technique. A 4-Chinese sheath was placed in the right femoral artery. The JL-4 and JR-4 catheter was also used to perform left heart catheterization left ventriculogram and selective coronary angiogram. At the end of the procedure the patient was transferred to the post-op holding area in stable condition for arterial sheath removal. Right radial access was obtained. Radial cocktail was given with 2.5 mg of verapamil, 400 mcg of nitroglycerin and 2000 units of heparin. Ikari 3.5 guiding catheter was used to cannulate the left main coronary artery. Patient was found to have a subtotal mid LAD occlusion. 0.014 inch whisper guidewire was used to cross into the LAD. A 2.5 into 12 mm Euphora balloon was used to dilate the lesion. Intracoronary nitroglycerin was given. Intravenous heparin was used. ACT was greater than 300. A 2.5 into 18 mm resolute drug-eluting stent was deployed in the mid LAD. 0% residual ELGIN-3 flow was noted. ANGIOGRAPHIC RESULTS The left main artery Left main has mild plaque divides into LAD and left circumflex coronary artery The left anterior descending artery Ostial 70 to 75% stenosis followed by 100% occlusion in the midsegment. Large diagonal branch with ostial 75 to 80% stenosis. The circumflex artery Left circumflex proximal stent is open. Large marginal branch has a bifurcating stenosis of 80 to 85%. Mid circumflex has 50% stenosis. The right coronary artery Mid vessel RCA stent is patent. 30% mid vessel plaque. PDA ostial has 80% stenosis. The WADE ventriculogram reveals Not done No LV gram performed IMPRESSION Three-vessel coronary artery disease with culprit for STEMI is mid LAD subtotal occlusion. Successful recanalization of the LAD with placement of a 2.5 into 18 mm resolute drug-eluting stent. Patient has significant residual disease in a large diagonal branch, ostial LAD, bifurcating marginal and PDA. Patient has history of diabetes mellitus and multivessel stenting in the past Patient would be better suited for coronary artery bypass grafting. Final decision to be made with patient's primary singing teacher and patient and family Electronically signed by : Vance Bidr MD 10/03/2021 20:05:55
--- NOTE | 2021-10-03 18:00 | ECG_ITS ---
APPROVED REPORT Exam: Resting ECG HR:129 bpm ECG Measurements Heart Rate 129 AXES WA 158 P 75 QRSd 86 QRS 65 QT 270 T 68 QTc 346 [address] ELEVATION CONSISTENT WITH INJURY, PERICARDITIS, OR EARLY REPOLARIZATION [ST ELEVATION W/O NORMALLY INFLECTED T-WAVE] MINIMAL ST DEPRESSION [0.025+ mV ST DEPRESSION] ABNORMAL ECG UNCONFIRMED REPORT Electronically signed by : Ab Lindsay MD 10/04/2021 19:50:55
--- NOTE | 2021-10-03 18:14 | PC.NURSE ---
Dr Churchill is speaking with Dr Bird telescope maintenance.
--- NOTE | 2021-10-03 18:17 | XR_ITS ---
PROCEDURE INFORMATION: Exam: XR Chest Exam date and time: 10/03/2021 6:17 PM Age: 61 years old Clinical indication: Sternal or substernal pain; Additional info: Cp PT to be taken to [facility]. Stemi alert TECHNIQUE: Imaging protocol: XR of the chest. Views: 1 view. COMPARISON: CR XR CHEST AP 04/04/2019 9:57 PM FINDINGS: Lungs: Unremarkable. No consolidation. Pleural spaces: Unremarkable. No pleural effusion. No pneumothorax. Heart/Mediastinum: Unremarkable. No cardiomegaly. Bones/joints: Unremarkable. IMPRESSION: No acute findings.
--- NOTE | 2021-10-03 18:17 | PC.NURSE ---
1806 STEMI ALERT CALLED.
--- NOTE | 2021-10-03 18:18 | PC.NURSE ---
[facility] [facility] team to be called by [facility].
[2021-10-03 18:23] LABS: Basophils # 0.3 K/mm3 (0-0.2); Basophils % 2.1 % (0.1-2.0); Eosinophils # 0.5 K/mm3 (0.0-0.4); Eosinophils % 3.7 % (0.1-12.0); Hematocrit 53.5 % (42.0-52.0); Hemoglobin 16.8 g/dL (14.1-18.0); Lymphocytes # 2.7 K/mm3 (0.7-4.5); Lymphocytes % 20.9 % (10-50); Mean Corpuscular HGB Conc 31.4 g/dL (31.8-35.4); Mean Corpuscular Hemoglobin 31.4 pg (27.0-31.2); Mean Platelet Volume 7.8 fl (7.4-10.4); Monocytes # 0.5 K/mm3 (0.1-1.0); Monocytes % 3.8 % (1.7-9.3); Neutrophils # 9.1 K/mm3 (1.8-7.8); Neutrophils % 69.5 % (37.0-80.0); Platelet Count 234 K/mm3 (142-424); Red Blood Count 5.35 M/mm3 (4.60-6.20); Red Cell Distribution Width 13.9 % (11.5-17.5); White Blood Count 13.1 K/mm3 (4.8-10.8)
--- NOTE | 2021-10-03 18:23 | PC.NURSE ---
rad at bedside
[2021-10-03 18:24] LABS: Chloride 96 mmol/L (98-107)
[2021-10-03 18:25] LABS: Potassium 4.1 mmoL/L (3.5-5.1); Sodium 134 mmol/L (136-145)
--- NOTE | 2021-10-03 18:25 | HMH.EDGENADL ---
ED Disposition Clinical Impression: ST elevation [place] (STEMI) Qualifiers: Involved coronary artery: unspecified coronary artery Qualified Code(s): I21.3 - ST elevation (STEMI) myocardial infarction of unspecified site Disposition: Admitted As Inpatient Condition on Discharge: Serious - Critical Care Critical Care Time: Yes Attestation: On , the high probability of a clinically significant, sudden or life threatening deterioration of the following system(s) required my full and direct attention, intervention and personal management. The time I documented below is in addition to time spent performing reported procedures but includes the following listed in this critical care notation. Total Critical Care Time: 30 Vital system(s) involved:: Circulatory Failure My critical care processes included: Assessment & monitoring of V/S, Initial and Re-exams, Data Review/Interpretation, Coordinating Care, Medication Orders and management, Documentation Medical Decision Making - Jd Inquiry Pt receiving controlled substance: Yes Jd was queried for this patient: No Reason not queried -: Emergent pt cond-no time Risks and benefits of using a controlled substance: were not discussed with pt by me Vital Signs: 10/03/21 18:08 10/03/21 18:49 Temperature 98.1 F 98.1 F Temperature Source Oral Oral Pulse Rate 95 H Pulse Rate [Left Radial] 130 H Respiratory Rate 20 18 Blood Pressure 143/35 H Blood Pressure [Right Arm] 170/98 H Blood Pressure Mean [Right Arm] 122 Blood Pressure Source Automatic Cuff Blood Pressure Source [Right Arm] Automatic Cuff Blood Pressure Position Sitting Blood Pressure Position [Right Arm] Sitting 02 Sat by Pulse Oximetry 95 Oxygen Delivery Method Room Air Nasal Cannula Oxygen Flow Rate (LPM) 2 - Lab Data Lab Results 10/03/21 18:11: WBC 13.1 H, RBC 5.35, Hgb 16.8, Hct 53.5 H, MCV 100.0 H, MCH 31.4 H, MCHC 31.4 L, RDW 13.9, Plt Count 234, MPV 7.8, Neut % (Auto) 69.5, Lymph % (Auto) 20.9, [place] % (Auto) 3.8, Eos % (Auto) 3.7, Baso % (Auto) 2.1 H, Neut # (Auto) 9.1 H, Lymph # (Auto) 2.7, [place] # (Auto) 0.5, Eos # (Auto) 0.5 H, Baso # (Auto) 0.3 H 10/03/21 18:11: Sodium 134 L, Potassium 4.1, Chloride 96 L, Carbon Dioxide 32 H, Anion Gap 10.1, BUN 7 L, Creatinine 0.60 L, Estimated GFR 137, Est GFR ( Amer) 166, Glucose 328 H, Calcium 8.5, Troponin I 2.85 H Result diagrams: 10/03/21 18:11 10/03/21 18:11 Orders (Tests/Meds): ED MEDICATIONS Generic Name Dose Route Start Last Admin Trade Name Freq PRN Reason Stop Dose Admin Diphenhydramine HCl 50 mg 10/03/21 18:36 Diphenhydramine 50mg/Ml Vial IV 10/03/21 18:37 ONCE ONE Fentanyl Citrate 25 mcg 10/03/21 18:57 Fentanyl 100mcg/2ml Vial IV 10/04/21 18:36 Q3MINP PRN Moderate to Severe Pain Fentanyl Citrate 50 mcg 10/03/21 18:57 Fentanyl 100mcg/2ml Vial IV 10/04/21 18:36 Q3MINP PRN Moderate to Severe Pain Fentanyl Citrate 25 mcg 10/03/21 18:57 Fentanyl 250mcg/5ml Vial IV 10/04/21 18:36 Q3MINP PRN Moderate to Severe Pain Fentanyl Citrate 50 mcg 10/03/21 18:58 Fentanyl 250mcg/5ml Vial IV 10/04/21 18:36 Q3MINP PRN Moderate to Severe Pain Flumazenil 0.2 mg 10/03/21 18:57 Flumazenil 0.1mg/Ml 5ml Vial IV 10/03/21 23:00 NEEDED PRN Sedation Heparin Sodium (Porcine) 10,000 unit 10/03/21 18:58 Heparin 1,000 Units/Ml 10ml Vial (Auxiliary Plant Operator) IV 10/03/21 22:36 NEEDED PRN Emergency Box Operational Assistant Sodium Chloride 1,000 mls @ 25 mls/hr 10/03/21 18:45 10/03/21 18:46 Sod Chlor 0.9% 1000ml Bag IV 10/04/21 18:36 25 mls/hr .Q25H LALITA Administration Lidocaine HCl 20 ml 10/03/21 18:36 Lidocaine 1% 5ml Pf Vial IJ 10/03/21 18:37 ONCE ONE Midazolam HCl 1 mg 10/03/21 18:57 Midazolam 2mg/2ml Vial IV 10/04/21 18:36 Q3MINP PRN Sedation Midazolam HCl 1 mg 10/03/21 18:57 Midazolam Hcl 1mg/1ml 5ml Vial IV 10/04/21
[2021-10-03 18:27] LABS: Blood Urea Nitrogen 7 mg/dl (9-20); Estimated Glomerular Filt Rate 137 ml/min (>60); GFR (African American) 166 ML/MIN (>60)
[2021-10-03 18:28] LABS: Anion Gap 10.1 mEq/L (5-15); Calcium 8.5 mg/dl (8.4-10.2); Carbon Dioxide 32 mmol/L (22.0-30.0); Glucose 328 mg/dl (74-100)
[2021-10-03 18:41] LABS: Troponin I 2.85 ng/ml (0.00-0.034)
--- NOTE | 2021-10-03 18:46 | PC.NURSE ---
Pt going to [facility] with house and er nurse
--- NOTE | 2021-10-03 18:47 | PC.NURSE ---
pt to collaborating supervising physician
--- NOTE | 2021-10-03 18:47 | PC.NURSE ---
aware of trop
--- NOTE | 2021-10-03 19:17 | HMH.HP ---
*Admission Date: 10/03/21 *Chief complaint: chest pain *History of present illness: 61 yr old male presents for chest pain. Patient states that he developed precordial chest pain at about 1 today that came and went but then at 4pm the pain worsened. Some mild shortness of breath. Slight aching in his arms, hands feel cold. Denies nausea or vomiting. He has had diaphoresis. Hx coronary disease and has coronary artery stents and also has peripheral vascular disease and bilateral leg amputations. He has seen Dr. Spencer. He is a smoker. Hx diabetes, hypertension and hyperlipidemia. pt admitted for a stemi taken from ed to [facility] History I have reviewed the patient's past medical history: Yes Medical History: Reports:: Anxiety, Cancer, Carotid Stenosis, Chronic Obstructive Pulmonary Disease (COPD), Coronary Artery Disease, Diabetes Mellitus Type 2, Gastroesophageal Reflux Disease(GERD), Hyperlipidemia, Hypertension, Lung Disease, MRSA, Peripheral Artery Disease Denies:: Diabetes Mellitus Type 1, Internal Pacemaker, Seizures *Have you ever received a pneumonia vaccine?: Yes *Have you received a flu vaccine this season?: No Other Medical History: Reports: Other. Denies: Blood Transfusion Reaction Laterality Cases: Left: Carotid Endarterectomy, Bilateral: Tonsillectomy Other Surgeries: Yes: Angioplasty, Cancer Surgery, Cardiac Catheterization, Cholecystectomy, Colonoscopy, Coronary Stent, Other. No: Pacemaker Amputation: Yes (BOTH LEGS) Fractures: Yes - *Social History Smoking Status: Current every day smoker Tobacco Type: cigarettes # Packs/Day (cigarettes): 1 #Yrs smoked (if former smoker): 46 Alcohol Intake: never Substance Use Type: former substance user *Occupational Status:: disabled Housing: apartment Household Members: none *Travel in the last 8 weeks: None - Psychiatric History Pschychiatric History:: Reports:: Anxiety Family Hx:: Cancer, Diabetes, Coronary Artery Disease Review of Systems - Review of Systems Review of systems:: pertinent systems reviewed and negative unless documented below - Constitutional Denies body ache(s), Denies fatigue - Eyes Denies change in vision - ENT Denies bleeding gums - *Cardiovascular Reports chest pain, Reports chest pain at rest, Reports chest pain with activity, Reports shortness of breath - *Respiratory Denies change in phlegm color - *Gastrointestinal Denies abdominal pain - *Genitourinary Denies difficulty urinating - *Musculoskeletal Denies joint pain - Integumentary/Breasts Denies rash - *Neurologic Denies dizziness - Psychiatric Denies anxiety - Endocrine Denies flushing - Hematologic/Lymphatic Denies easy bruising - Allergic/Immunologic Denies itchy eyes Meds Home Medications Medication Instructions Recorded Confirmed Type aspirin 81 mg tablet,delayed 81 mg PO DAILY #90 tab 01/10/18 03/31/21 Rx release oxycodone 15 mg tablet 15 mg PO QID tab 09/23/19 03/31/21 History glipizide 10 mg tablet, extended 10 mg PO BID #180 tab 09/27/19 03/31/21 Rx release 24 hr insulin glargine 100 unit/mL (3 10 unit SQ QHS #15 ml 09/27/19 03/31/21 Rx mL) subcutaneous pen gabapentin 800 mg tablet 800 mg PO QID #120 tab 08/11/20 03/31/21 Rx bisoprolol fumarate 10 mg tablet 10 mg PO DAILY #90 tab 03/02/21 03/31/21 Rx metformin 1,000 mg tablet 1,000 mg PO BID tab 03/02/21 03/31/21 History atorvastatin 80 mg tablet See Rx Instructions .ROUTE 03/30/21 03/31/21 Rx .COMPLEX #90 tab lansoprazole 30 mg capsule,delayed See Rx Instructions .ROUTE 03/31/21 Rx release .COMPLEX #90 cap linagliptin 5 mg tablet See Rx Instructions .ROUTE 03/31/21 Rx .COMPLEX #90 tab budesonide-formoterol HFA 80 See Rx Instructions .ROUTE 04/02/21 Rx mcg-4.5 mcg/actuation aerosol .COMPLEX #30.6 g inhaler clopidogrel 75 mg tablet See Rx Instructions .ROUTE 09/29/21 Rx .COMPLEX #30 tab Allergies Allergy/AdvReac Type Severity Reaction
--- NOTE | 2021-10-03 19:17 | PC.NURSE ---
Stemi alert at 180 in ER EKG sent to Dr Bird at 1811 1817 Alba Giraldo notified of stemi alert 1817 Kavitha notified of Stemi alert 1818 Marquis notified of Stemi alert.
[2021-10-03 20:12] LABS: CATHL Activated Clotting Time 229 SEC (74-125)
[2021-10-03 20:13] LABS: CATHL Activated Clotting Time 349 SEC (74-125)
--- NOTE | 2021-10-03 20:16 | PC.NURSE ---
patient up to floor via stretcher @ this time from [employer]
[2021-10-04] VITALS (16 sets, daily range): BP systolic 95–154; BP diastolic 52–97; PULSE 54–91; RESP 13–25; TEMP 36.6–37.2; O2SAT 90–99
--- NOTE | 2021-10-04 04:37 | PC.NURSE ---
Pt has remained on O2 since arrival to floor. Pt noted to desat while in a deep sleep. Pt was placed on 35% venti via RT. Pt has denied any soa or discomfort. He stated that he has a sinus infection. (R) radial cath site has DSG in place. C/D/I. VSS. Will continue to monitor.
[2021-10-04 06:13] LABS: Basophils # 0.3 K/mm3 (0-0.2); Basophils % 1.5 % (0.1-2.0); Eosinophils # 0.4 K/mm3 (0.0-0.4); Eosinophils % 2.1 % (0.1-12.0); Hematocrit 52.6 % (42.0-52.0); Hemoglobin 16.7 g/dL (14.1-18.0); Lymphocytes # 2.4 K/mm3 (0.7-4.5); Lymphocytes % 13.8 % (10-50); Mean Corpuscular HGB Conc 31.7 g/dL (31.8-35.4); Mean Corpuscular Hemoglobin 31.9 pg (27.0-31.2); Mean Corpuscular Volume 100.4 fl (80-94); Mean Platelet Volume 7.8 fl (7.4-10.4); Monocytes # 0.6 K/mm3 (0.1-1.0); Monocytes % 3.1 % (1.7-9.3); Neutrophils # 14.1 K/mm3 (1.8-7.8); Neutrophils % 79.6 % (37.0-80.0); Platelet Count 224 K/mm3 (142-424); Red Blood Count 5.24 M/mm3 (4.60-6.20); Red Cell Distribution Width 13.8 % (11.5-17.5); White Blood Count 17.7 K/mm3 (4.8-10.8)
[2021-10-04 06:14] LABS: MANUAL DIFFERENTIAL MANUAL DIFFERENTIAL (MANUAL DIFF)
[2021-10-04 06:19] LABS: Anion Gap 11.3 mEq/L (5-15); Blood Urea Nitrogen 5 mg/dl (9-20); Calcium 8.7 mg/dl (8.4-10.2); Carbon Dioxide 30 mmol/L (22.0-30.0); Chloride 100 mmol/L (98-107); Creatinine Clearance Estimated 82 mL/min (50-200); Estimated Glomerular Filt Rate 169 ml/min (>60); GFR (African American) 205 ML/MIN (>60); Glucose 268 mg/dl (74-100); Potassium 4.3 mmoL/L (3.5-5.1); Sodium 137 mmol/L (136-145)
[2021-10-04 06:28] LABS: Hypochromasia 1+; Lymphocytes % 12 % (10-50); Macrocytosis 2+; Monocytes % 1 % (2-9); Neutrophils % 83 % (42-76); Platelet Estimate Normal; Total Cells Counted 100
--- NOTE | 2021-10-04 07:33 | HMH.PHAVTE ---
[facility] Pharmacy VTE Monitoring - Patient Demographics Admission date: 10/03/21 Report Date: 10/04/21 Time: 07:33 Allergies/Adverse Reactions: Patient Allergies No Known Allergies Allergy (Verified 03/31/21 10:42) Height: 1.7 m Weight: 75.115 kg Patient Problems: Current Active Problems ST elevation [place] (STEMI) (Acute) HTN (hypertension) (Chronic) Carotid artery stenosis (Chronic) Status post bilateral below knee amputation (Chronic) CAD (coronary artery disease) (Chronic) Hyperlipidemia associated with type 2 diabetes mellitus (Chronic) COPD (chronic obstructive pulmonary disease) (Chronic) Diabetes (Chronic) - VTE Risk Labs: VTE Related Lab Results Hgb 16.7 g/dL (14.1-18.0) 10/04/21 05:56 Hct 52.6 % (42.0-52.0) H 10/04/21 05:56 Plt Count 224 K/mm3 (142-424) 10/04/21 05:56 BUN 5 mg/dl (9-20) L D 10/04/21 05:56 Creatinine 0.50 mg/dl (0.66-1.25) L 10/04/21 05:56 Estimated Creat Clear 82 mL/min (50-200) 10/04/21 05:56 Was VTE Risk Assessment Performed: Yes VTE Risk Level: Moderate Risk Clinical Trial Participant: No - Prophylaxis VTE Prophylaxis Ordered?: Yes Types of VTE Prophylaxis: TEDS Knee High Location of Applied Device: Not Applicable
--- NOTE | 2021-10-04 09:02 | HMH.PHAINT ---
Home medication list verified using list from [facility] pharmacy and pt interview
--- NOTE | 2021-10-04 10:55 | HMH.CNCARD ---
History of Present Illness Consult date: 10/04/21 Requesting physician: Anup Vaughn Consult reason: chest pain Chief complaint: STEMI Additional Medical History:: 1. COPD A. Continued tobacco use 2. PAD A. Bilateral BKA 3. CAD with prior ARCENIO to Cx and RCA, 09/2019. A. STEMI, 10/03/2021 4. Hypertension 5. Hyperlipidemia 6. GERD 7. Carotid artery stenosis A. Left carotid endarterectomy 2001 B. MJ occluded with LICA less than 20% stenosed, 02/2021 8. Chronic pain syndrome 9. Diabetes mellitus type 2 History of present illness: 61 yr old male presents for chest pain. Patient states that he developed precordial chest pain at about 1 today that came and went but then at 4pm the pain worsened. Some mild shortness of breath. Slight aching in his arms, hands feel cold. Denies nausea or vomiting. He has had diaphoresis. Hx coronary disease and has coronary artery stents and also has peripheral vascular disease and bilateral leg amputations. He has seen Dr. Spencer. He is a smoker. Hx diabetes, hypertension and hyperlipidemia. 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 Vaughn Patient confirms events as noted above. Currently pain-free and feeling well. He is requiring oxygen by nonrebreather mask. [facility] History Medical History: Reports:: Anxiety, Arrhythmia, Cancer, Carotid Stenosis, Chronic Obstructive Pulmonary Disease (COPD), Coronary Artery Disease, Diabetes Mellitus Type 2, Gastroesophageal Reflux Disease(GERD), Hyperlipidemia, Hypertension, Lung Disease, MRSA, Peripheral Artery Disease Denies:: Diabetes Mellitus Type 1, Internal Pacemaker, Seizures *Have you ever received a pneumonia vaccine?: Yes *Have you received a flu vaccine this season?: No Other Medical History: Reports: Other. Denies: Blood Transfusion Reaction Laterality Cases: Left: Carotid Endarterectomy, Bilateral: Tonsillectomy Other Surgeries: Yes: Angioplasty, Cancer Surgery, Cardiac Catheterization, Cholecystectomy, Colonoscopy, Coronary Stent, Other. No: Pacemaker Amputation: Yes (BOTH LEGS) Fractures: Yes - *Social History Smoking Status: Current every day smoker Tobacco Type: cigarettes # Packs/Day (cigarettes): 1 #Yrs smoked (if former smoker): 46 Alcohol Intake: current Alcohol Intake Frequency:: holidays/special occasions only Substance Use Type: former substance user *Occupational Status:: unemployed Housing: apartment Household Members: none *Travel in the last 8 weeks: None - Psychiatric History Pschychiatric History:: Reports:: Anxiety Family Hx:: Cancer, Coronary Artery Disease, Diabetes, Heart Attack, Hyperlipidemia, Hypertension Meds Home Medications Medication Instructions Recorded Confirmed Type oxycodone 15 mg tablet 15 mg PO Q6HP PRN tab 09/23/19 10/04/21 History gabapentin 800 mg tablet 800 mg PO QID #120 tab 08/11/20 10/04/21 Rx metformin 1,000 mg tablet 1,000 mg PO BID tab 03/02/21 10/04/21 History Aspirin [Low Dose Aspirin EC] 81 mg PO DAILY 10/04/21 10/04/21 History Atorvastatin Calcium [Lipitor 80mg 80 mg PO DAILY 10/04/21 10/04/21 History Tablet*] Budesonide/Formoterol Fumarate 2 puffs IH BID 10/04/21 10/04/21 History [Budesonide-Formoterol 80-4.5] Clopidogrel Bisulfate [Plavix] 75 mg PO DAILY 10/04/21 10/04/21 History Insulin Glargine,Hum.rec.anlog 10 unit SQ QHS 10/04/21 10/04/21 History [Lantus Solostar U-100 Insulin] Lansoprazole 30 mg PO DAILY 10/04/21 10/04/21 History Linagliptin [Tradjenta] 5 mg PO DAILY 10/04/21 10/04/21 History bisoproloL fumarate [Bisoprolol 10 mg PO DAILY 10/04/21 10/04/21 History Fumarate] glipiZIDE [Glipizide ER] 10 mg PO BID 10/04/21 10/04/21 History Allergies Allergy/AdvReac Type Severity Reaction Status Date / Time No Known Allergies Allergy Verified 03/31/21 10:42 Exam Vital signs and Labs for Last 24 Hours: Temp Pulse Resp BP Pulse Ox 98.1 F 54 L 15 154/91 H 92 L 10/04/21 08:00 10/04/21 08:00 0
[2021-10-04 11:22] LABS: POC Glucose,Bedside 358 (70-110)
--- NOTE | 2021-10-04 12:18 | HMH.ACPN2 ---
Internal Medicine - PN: Subj *Date: 10/04/21 *Time: 08:30 Interval history: pt sitting up in bed with o2 per nc 12 liters Exam Vital signs and Labs for Last 24 Hours: Temp Pulse Resp BP Pulse Ox 98.1 F 81 16 112/74 96 10/04/21 08:00 10/04/21 10:00 10/04/21 10:00 10/04/21 10:00 10/04/21 10:00 Laboratory Results - last 24 hr 10/03/21 18:11: WBC 13.1 H, RBC 5.35, Hgb 16.8, Hct 53.5 H, MCV 100.0 H, MCH 31.4 H, MCHC 31.4 L, RDW 13.9, Plt Count 234, MPV 7.8, Neut % (Auto) 69.5, Lymph % (Auto) 20.9, [place] % (Auto) 3.8, Eos % (Auto) 3.7, Baso % (Auto) 2.1 H, Neut # (Auto) 9.1 H, Lymph # (Auto) 2.7, [place] # (Auto) 0.5, Eos # (Auto) 0.5 H, Baso # (Auto) 0.3 H 10/03/21 18:11: Sodium 134 L, Potassium 4.1, Chloride 96 L, Carbon Dioxide 32 H, Anion Gap 10.1, BUN 7 L, Creatinine 0.60 L, Estimated GFR 137, Est GFR ( Amer) 166, Glucose 328 H, Calcium 8.5, Troponin I 2.85 H 10/03/21 20:11: Activated Clotting Time 349 H* 10/03/21 20:37: Activated Clotting Time 229 H* D 10/04/21 05:56: WBC 17.7 H D, RBC 5.24, Hgb 16.7, Hct 52.6 H, MCV 100.4 H, MCH 31.9 H, MCHC 31.7 L, RDW 13.8, Plt Count 224, MPV 7.8, Neut % (Auto) 79.6, Lymph % (Auto) 13.8, [place] % (Auto) 3.1, Eos % (Auto) 2.1, Baso % (Auto) 1.5, Neut # (Auto) 14.1 H, Lymph # (Auto) 2.4, [place] # (Auto) 0.6, Eos # (Auto) 0.4, Baso # (Auto) 0.3 H, Total Counted 100, Neutrophils % (Manual) 83 H, Band Neutrophils % 4.0, Lymphocytes % (Manual) 12, Monocytes % (Manual) 1 L, Platelet Estimate Normal, Hypochromasia 1+, Macrocytosis 2+ 10/04/21 05:56: Sodium 137, Potassium 4.3, Chloride 100, Carbon Dioxide 30, Anion Gap 11.3, BUN 5 L D, Creatinine 0.50 L, Estimated Creat Clear 82, Estimated GFR 169, Est GFR ( Amer) 205 D, Glucose 268 H, Calcium 8.7 10/04/21 11:11: POC Glucose 358 H* I & O for Last 24 hours: Intake & Output 10/02/21 10/03/21 10/04/21 10/05/21 11:59 11:59 11:59 11:59 Intake Total 240 / 240 Balance 240 / 240 Weight 165 lb 9.6 oz - Constitutional no acute distress - *Routine HEENT Exam Head: Present: normocephalic Eye: Present: PERRL ENT: Present: mucous membranes moist - *Routine Neck Exam Present: supple. Absent: lymphadenopathy - *Routine Respiratory Exam Present: wheezes - *Routine Cardiovascular Exam Present: RRR - *Routine Abdominal Exam Present: soft, normoactive bowel sounds. Absent: tenderness - *Routine Extremities Exam Present: amputation. Absent: cyanosis, clubbing, edema Comments: najma aka - *Routine Skin Exam Present: warm. Absent: rash - *Routine Neurological Exam Present: alert, oriented X3 Assessment and Plan (1) ST elevation [place] (STEMI) Status: Acute Qualifiers: Involved coronary artery: unspecified coronary artery Qualified Code(s): I21.3 - ST elevation (STEMI) myocardial infarction of unspecified site Category: Medical Code(s): I21.3 - ST elevation (STEMI) myocardial infarction of unspecified site (2) CAD (coronary artery disease) Status: Chronic Qualifiers: Coronary Disease-Associated Artery/Lesion type: [place] artery [place] vs. transplanted heart: [place] heart Associated angina: without angina Qualified Code(s): I25.10 - Atherosclerotic heart disease of [place] coronary artery without angina pectoris Category: Medical Code(s): I25.10 - Atherosclerotic heart disease of [place] coronary artery without angina pectoris (3) COPD (chronic obstructive pulmonary disease) Status: Chronic Qualifiers: COPD type: unspecified COPD Qualified Code(s): J44.9 - Chronic obstructive pulmonary disease, unspecified Category: Medical Code(s): J44.9 - Chronic obstructive pulmonary disease, unspecified (4) Carotid artery stenosis Status: Chronic Qualifiers: Laterality: bilateral Qualified Code(s): I65.23 - Occlusion and stenosis of bilateral carotid arteries Category: Medical Code(s): I65.29 - Occlusion and stenosis of unspecified carotid artery (5
--- NOTE | 2021-10-04 15:38 | PC.NURSE ---
Pt is alert and oriented x4. Some wheezes noted to lungs. He was weaned from 9L venti mask to 2L NC w/O2 sats measuring in the upper 90's now. He does desat into the 80's on occasion when sleeping deeply. Will continue to wean as tolerated. He has been NSR on telemetry. He has used a urinal at the bedside. He was up to his wheel chair for approx an hour with assist x2 before requesting to be put back into bed. He reports severe chronic pain, pain medication administered per mar q6hrs. Dressing to right radial site is clean, dry and intact. Glucose elevated, most recent check was 358, 12 units administered per SSI. He is currently resting in bed with his eyes closed.
[2021-10-04 16:22] LABS: POC Glucose,Bedside 204 (70-110)
[2021-10-04 20:19] LABS: POC Glucose,Bedside 168 (70-110)
[2021-10-05] VITALS: BP 84/43; PULSE 74; PULSE 77; RESP 13; O2SAT 92
[2021-10-05 02:00] VITALS: BP 86/52; PULSE 70; RESP 14; O2SAT 90
[2021-10-05 04:00] VITALS: BP 91/54; PULSE 77; PULSE 79; RESP 16; TEMP 37.3; O2SAT 90
[2021-10-05 05:00] VITALS: BMI 23.0
[2021-10-05 06:00] VITALS: BP 92/51; PULSE 70; RESP 16; O2SAT 90
[2021-10-05 07:28] LABS: Basophils # 0.2 K/mm3 (0-0.2); Basophils % 1.2 % (0.1-2.0); Eosinophils # 0.4 K/mm3 (0.0-0.4); Eosinophils % 2.9 % (0.1-12.0); Hematocrit 51.9 % (42.0-52.0); Hemoglobin 16.3 g/dL (14.1-18.0); Lymphocytes # 3.1 K/mm3 (0.7-4.5); Lymphocytes % 24.1 % (10-50); Mean Corpuscular HGB Conc 31.3 g/dL (31.8-35.4); Mean Corpuscular Volume 102.1 fl (80-94); Mean Platelet Volume 8.3 fl (7.4-10.4); Monocytes # 0.5 K/mm3 (0.1-1.0); Monocytes % 3.8 % (1.7-9.3); Neutrophils # 8.8 K/mm3 (1.8-7.8); Neutrophils % 68.1 % (37.0-80.0); Platelet Count 213 K/mm3 (142-424); Red Blood Count 5.08 M/mm3 (4.60-6.20); Red Cell Distribution Width 13.9 % (11.5-17.5)
[2021-10-05 07:42] LABS: Anion Gap 8.7 mEq/L (5-15); Blood Urea Nitrogen 12 mg/dl (9-20); Calcium 9.1 mg/dl (8.4-10.2); Carbon Dioxide 33 mmol/L (22.0-30.0); Chloride 100 mmol/L (98-107); Creatinine Clearance Estimated 73 mL/min (50-200); Estimated Glomerular Filt Rate 137 ml/min (>60); GFR (African American) 166 ML/MIN (>60); Glucose 212 mg/dl (74-100); Potassium 3.7 mmoL/L (3.5-5.1); Sodium 138 mmol/L (136-145)
[2021-10-05 08:00] VITALS: BP 153/58; PULSE 74; RESP 22; TEMP 37.1; O2SAT 94; O2SAT 95
[2021-10-05 10:00] VITALS: BP 111/67; PULSE 63; RESP 20; O2SAT 97
[2021-10-05 10:01] VITALS: BMI 23.0
--- NOTE | 2021-10-05 10:35 | P.PN_ITS ---
Subjective Date: 10/05/21 Time: 10:35 Interval history: 61-year-old white male in bed in no acute distress. Denies any chest pain, pressure or tightness. Anxious to go home. Exam Vital signs and Labs for Last 24 Hours: Temp Pulse Resp BP Pulse Ox 98.7 F 74 22 153/58 H 94 L 10/05/21 08:00 10/05/21 08:00 10/05/21 08:00 10/05/21 08:00 10/05/21 08:00 Laboratory Results - last 24 hr 10/04/21 11:11: POC Glucose 358 H* 10/04/21 16:06: POC Glucose 204 H 10/04/21 20:07: POC Glucose 168 H 10/05/21 06:34: WBC 13.0 H D, RBC 5.08, Hgb 16.3, Hct 51.9, MCV 102.1 H, MCH 32 .0 H, MCHC 31.3 L, RDW 13.9, Plt Count 213, MPV 8.3, Neut % (Auto) 68.1, Lymph % (Auto) 24.1, [place] % (Auto) 3.8, Eos % (Auto) 2.9, Baso % (Auto) 1.2, Neut # (Auto) 8.8 H, Lymph # (Auto) 3.1, [place] # (Auto) 0.5, Eos # (Auto) 0.4, Baso # (Auto) 0.2 10/05/21 06:34: Sodium 138, Potassium 3.7, Chloride 100, Carbon Dioxide 33 H, Anion Gap 8.7, BUN 12 D, Creatinine 0.60 L, Estimated Creat Clear 73, Estimated GFR 137, Est GFR ( Amer) 166, Glucose 212 H, Calcium 9.1 I & O for Last 24 hours: Intake & Output 10/02/21 10/03/21 10/04/21 10/05/21 11:59 11:59 11:59 11:59 Intake Total 240 / 240 720 / 720 Output Total 500 / 800 875 / 875 Balance -260 / -560 -155 / -155 Weight 165 lb 9.6 oz 146 lb 7.955 oz - *Routine Respiratory Exam Present: CTA bilaterally - *Routine Cardiovascular Exam Present: RRR Progress Note: A&P (1) ST elevation [place] (STEMI) Status: Acute (2) CAD (coronary artery disease) Status: Chronic (3) COPD (chronic obstructive pulmonary disease) Status: Chronic (4) Carotid artery stenosis Status: Chronic (5) Diabetes Status: Chronic (6) HTN (hypertension) Status: Chronic (7) Hyperlipidemia associated with type 2 diabetes mellitus Status: Chronic (8) Status post bilateral below knee amputation Status: Chronic Assessment and Plan for All Diagnoses:: 1. STEMI with LAD is the culprit vessel status post ARCENIO. Continue aspirin and Plavix. Patient has three-vessel disease with recommendation for consideration of CABG. Patient prefers to go to [facility] and will arrange as an outpatient at follow-up next week. 2. Hyperlipidemia, continue statin therapy 3. Hypertension, continue beta-humberto and ARB therapy. Okay for discharge home from cardiology standpoint Home medication recommendations: Aspirin 81 mg daily Plavix 75 mg daily Irbesartan 150 mg daily Bisoprolol 10 mg daily Atorvastatin 80 mg daily Follow-up in our office in 1 week.
--- NOTE | 2021-10-05 11:29 | HMH.DCSUM ---
General - General Admission date:: 10/03/21 Discharge date: 10/05/21 HPI HPI: 61 yr old male presents for chest pain. Patient states that he developed precordial chest pain at about 1 today that came and went but then at 4pm the pain worsened. Some mild shortness of breath. Slight aching in his arms, hands feel cold. Denies nausea or vomiting. He has had diaphoresis. Hx coronary disease and has coronary artery stents and also has peripheral vascular disease and bilateral leg amputations. He has seen Dr. Spencer. He is a smoker. Hx diabetes, hypertension and hyperlipidemia. pt admitted for a stemi taken from ed to laboratory associate Hospital Course Hospital Course: 61 yr old male presents for chest pain. Patient states that he developed precordial chest pain at about 1 today that came and went but then at 4pm the pain worsened. Some mild shortness of breath. Slight aching in his arms, hands feel cold. Denies nausea or vomiting. He has had diaphoresis. Hx coronary disease and has coronary artery stents and also has peripheral vascular disease and bilateral leg amputations. He has seen Dr. Spencer. He is a smoker. Hx diabetes, hypertension and hyperlipidemia. pt admitted for a stemi taken from ed to laboratory associate 10/03/21 CXR: FINDINGS: Lungs: Unremarkable. No consolidation. Pleural spaces: Unremarkable. No pleural effusion. No pneumothorax. Heart/Mediastinum: Unremarkable. No cardiomegaly. Bones/joints: Unremarkable. IMPRESSION: No acute findings. Electronically signed by Maxi Carranza MD 10/03/21 Cardiac Catherization: ANGIOGRAPHIC RESULTS The left main artery Left main has mild plaque divides into LAD and left circumflex coronary artery The left anterior descending artery Ostial 70 to 75% stenosis followed by 100% occlusion in the midsegment. Large diagonal branch with ostial 75 to 80% stenosis. The circumflex artery Left circumflex proximal stent is open. Large marginal branch has a bifurcating stenosis of 80 to 85%. Mid circumflex has 50% stenosis. The right coronary artery Mid vessel RCA stent is patent. 30% mid vessel plaque. PDA ostial has 80% stenosis. The WADE ventriculogram reveals Not done No LV gram performed IMPRESSION Three-vessel coronary artery disease with culprit for STEMI is mid LAD subtotal occlusion. Successful recanalization of the LAD with placement of a 2.5 into 18 mm resolute drug-eluting stent. Patient has significant residual disease in a large diagonal branch, ostial LAD, bifurcating marginal and PDA. Patient has history of diabetes mellitus and multivessel stenting in the past Patient would be better suited for coronary artery bypass grafting. 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 STEMI with LAD is the culprit vessel status post ARCENIO. Continue aspirin and Plavix. Patient has three-vessel disease with recommendation for consideration of CABG. Patient prefers to go to [facility] and will arrange as an outpatient at follow-up next week. 2. Hyperlipidemia, continue statin therapy 3. Hypertension, continue beta-humberto and ARB therapy. Okay for discharge home from cardiology standpoint Home medication recommendations: Aspirin 81 mg daily Plavix 75 mg daily Irbesartan 150 mg daily Bisoprolol 10 mg daily Atorvastatin 80 mg daily Follow-up in our office in 1 week. 51-year-old male patient sitting up in bed resting quietly he denies any chest pain or shortness of breath during the night. Discussed discharge home today, he is agreement with this. Current oxygenation 96% on room air. PLAN: 1. Will discharge home today 2. Follow-up Cadiology in 1 week and they will arrange appointment at [facility] for CABG evaluation - Home medication recommendations: Aspirin 81 mg daily Plavix 75 mg daily Irbesartan 150 mg daily Bisoprolol 10 mg daily
[2021-10-05 11:34] LABS: POC Glucose,Bedside 232 (70-110)
--- NOTE | 2021-10-05 12:05 | HMH.PHACLD ---
Chris Pérez JR has received discharge medication counseling on the following medications: -ASPIRIN -ATORVASTATIN -PLAVIX -BISOPROLOL -IRBESARTAN (WATCH FOR DIZZINESS, LIGHTHEADEDNESS. TAKE ONE TABLET DAILY.) PATIENT WAS ADVISED THAT NEW PRESCRIPTIONS FOR IRBESARTAN, ATORVASTATIN, AND BISOPROLOL WERE SENT TO [facility]. PATIENT ASKED IF A NEW SCRIPT WAS SENT FOR HIS BASAGLAR AND WAS ADVISED TO CALL HIS PRIMARY CARE DOCTOR'S OFFICE FOR A NEW PRESCRIPTION SINCE HE WAS OUT. PATIENT ENDORSED NO FURTHER QUESTIONS REGARDING NEW MEDICATIONS.
--- NOTE | 2021-10-06 11:49 | CARE MANAGER ---
Called ans spoke with patient, he is at home and doing well. He has follow-up appointments with Dr. Spencer and Dr. Vaughn, he also has his meds. No issues noted.
== END 2021-10-05 12:14 | disposition home or self-care (01) | DRG 247 ==
LOC: ER 18:38 → CATHLAB 18:57 → 2ND 19:01
PROVIDERS: Nurse Practitioner Family; Admitting Provider Emergency Medicine; Emergency Provider Emergency Medicine; PCP Emergency Medicine; Referring Provider Internal Medicine Cardiovascular Disease; Visit Provider Emergency Medicine
PROC: 027034Z Dilation of Coronary Artery, One Artery with Drug-eluting Intraluminal Device, Percutaneous Approach (ICD-10-PCS; principal; 2021-10-03 18:35)
DX: I21.02 ST elevation (STEMI) myocardial infarction involving left anterior descending coronary artery (principal); I25.10 Atherosclerotic heart disease of native coronary artery without angina pectoris; I65.23 Occlusion and stenosis of bilateral carotid arteries; E11.51 Type 2 diabetes mellitus with diabetic peripheral angiopathy without gangrene; Z79.84 Long term (current) use of oral hypoglycemic drugs; J44.9 Chronic obstructive pulmonary disease, unspecified; Z95.5 Presence of coronary angioplasty implant and graft; Z89.512 Acquired absence of left leg below knee; Z89.511 Acquired absence of right leg below knee; F41.9 Anxiety disorder, unspecified; E78.5 Hyperlipidemia, unspecified; F17.210 Nicotine dependence, cigarettes, uncomplicated; K21.9 Gastro-esophageal reflux disease without esophagitis; Z85.9 Personal history of malignant neoplasm, unspecified
CPT/HCPCS: 93454; C9606; 36415; 71045; 80048; 82962; 84484; 85007; 85025; 85347; 92941; 93005; 93306; 96374; 96375; 99152; 99153; 99285; C1725; C1769; C1876; J1644; J2405; Q9967

== ENCOUNTER 2021-11-20 12:38 | Observation (INO) | payer MEDICARE, MEDICAID, SELFPAY ==
[2021-11-20] VITALS (15 sets, daily range): BP systolic 122–198; BP diastolic 69–102; PULSE 75–117; RESP 12–17; TEMP 36.7; O2SAT 95–100; BMI 65.7; BMI 54.0
--- NOTE | 2021-11-20 12:38 | ECG_ITS ---
APPROVED REPORT Exam: Resting ECG HR:112 bpm ECG Measurements Heart Rate 112 AXES SD 144 P 69 QRSd 87 QRS 54 QT 279 T 71 QTc 345 Conclusion SINUS TACHYCARDIA WITH OCCASIONAL VENTRICULAR PREMATURE COMPLEXES NONSPECIFIC ST & T-WAVE ABNORMALITY ABNORMAL RHYTHM ECG UNCONFIRMED REPORT Electronically signed by : Ab Lindsay MD 11/21/2021 15:11:47
--- NOTE | 2021-11-20 12:56 | XR_ITS ---
PROCEDURE INFORMATION: Exam: XR Chest Exam date and time: 11/20/2021 1:03 PM Age: 61 years old Clinical indication: Pain; Chest pressure; Additional info: Cp. Cp, cough, smoker TECHNIQUE: Imaging protocol: XR of the chest. Views: 1 view. COMPARISON: CR XR CHEST PORTABLE 10/03/2021 6:21 PM FINDINGS: Lungs: Mild flattening of the hemidiaphragms. Minimal regions of parenchymal scarring left lung base. No consolidation. Pleural spaces: Unremarkable. No pleural effusion. No pneumothorax. Heart/Mediastinum: Unremarkable. No cardiomegaly. Bones/joints: Unremarkable. IMPRESSION: 1. No acute findings. 2. Findings suggesting mild changes of chronic obstructive pulmonary disease.
--- NOTE | 2021-11-20 12:59 | ECG_ITS ---
APPROVED REPORT Exam: Resting ECG HR:101 bpm ECG Measurements Heart Rate 101 AXES OK 178 P 73 QRSd 94 QRS 56 QT 293 T 69 QTc 351 Conclusion SINUS TACHYCARDIA WITH OCCASIONAL VENTRICULAR PREMATURE COMPLEXES ST DEVIATION AND MODERATE T-WAVE ABNORMALITY, CONSIDER ANTERIOR ISCHEMIA [-0.1+ mV T-WAVE IN V3/V4] ABNORMAL ECG UNCONFIRMED REPORT Electronically signed by : Ab Lindsay MD 11/21/2021 15:11:27
--- NOTE | 2021-11-20 13:11 | CT_ITS ---
PROCEDURE INFORMATION: Exam: CTA Chest With Contrast Exam date and time: 11/20/2021 1:38 PM Age: 61 years old Clinical indication: Pain; Chest pressure; Prior surgery; Additional info: Cp, SOA, productive cough. Prior HX heart stents and heart attack TECHNIQUE: Imaging protocol: Computed tomographic angiography of the chest with contrast. 3D rendering (Not supervised by radiologist): MIP and/or 3D reconstructed images were created by the technologist. Radiation optimization: All CT scans at this facility use at least one of these dose optimization techniques: automated exposure control; mA and/or kV adjustment per patient size (includes targeted exams where dose is matched to clinical indication); or iterative reconstruction. Contrast material: ISOVUE 370; Contrast volume: 70 ml; Contrast route: INTRAVENOUS (IV); COMPARISON: CR XR CHEST PORTABLE 11/20/2021 1:03 PM FINDINGS: Pulmonary arteries: No evidence of pulmonary embolus. Aorta: Regions of atherosclerotic vascular calcification involving the aortic arch and coronary arteries. Incomplete visualization of extensive regions of atherosclerotic vascular disease and intramural thrombus involving the proximal abdominal aorta at and just proximal to the left renal artery. Vascular stent demonstrated. Lungs: There is a calcified granuloma posteriorly at the left lung base. Mild ground-glass regions of opacification with scattered small regions of cystic change most pronounced in the upper lobes. The esophagus is collapsed. There is apparent mild thickening of the esophageal wall. This is most likely secondary to inadequate distention. Pleural spaces: Unremarkable. No pneumothorax. No pleural effusion. Heart: See Aorta finding. Lymph nodes: Nonspecific mediastinal lymph nodes are demonstrated in the AP window. Calcified subcarinal and left perihilar lymph nodes are also demonstrated. Diaphragm: The small hiatal hernia. Gallbladder and bile ducts: Status post cholecystectomy. Spleen: Scattered granulomas are demonstrated in the spleen. Bones/joints: Unremarkable. No acute fracture. Soft tissues: Unremarkable. IMPRESSION: 1. No evidence of pulmonary embolus. 2. Atherosclerotic vascular disease involving the aortic arch and coronary arteries. 3. Evidence of prior granulomatous disease. 4. Mild changes of interstitial lung disease.
[2021-11-20 13:15] LABS: Basophils # 0.3 K/mm3 (0-0.2); Basophils % 1.9 % (0.1-2.0); Eosinophils # 0.3 K/mm3 (0.0-0.4); Eosinophils % 2.2 % (0.1-12.0); Hematocrit 50.4 % (42.0-52.0); Hemoglobin 16.3 g/dL (14.1-18.0); Lymphocytes # 3.5 K/mm3 (0.7-4.5); Lymphocytes % 26.1 % (10-50); Mean Corpuscular HGB Conc 32.3 g/dL (31.8-35.4); Mean Corpuscular Hemoglobin 31.7 pg (27.0-31.2); Mean Corpuscular Volume 98.3 fl (80-94); Mean Platelet Volume 8.1 fl (7.4-10.4); Monocytes # 0.6 K/mm3 (0.1-1.0); Monocytes % 4.2 % (1.7-9.3); Neutrophils # 8.7 K/mm3 (1.8-7.8); Neutrophils % 65.6 % (37.0-80.0); Platelet Count 265 K/mm3 (142-424); Red Blood Count 5.13 M/mm3 (4.60-6.20); Red Cell Distribution Width 13.5 % (11.5-17.5); White Blood Count 13.3 K/mm3 (4.8-10.8)
[2021-11-20 13:25] LABS: Chloride 100 mmol/L (98-107); Sodium 139 mmol/L (136-145)
[2021-11-20 13:26] LABS: Potassium 3.4 mmoL/L (3.5-5.1)
[2021-11-20 13:28] LABS: Blood Urea Nitrogen 5 mg/dl (9-20); Creatinine Clearance Estimated 9 mL/min (50-200); Estimated Glomerular Filt Rate 115 ml/min (>60); GFR (African American) 139 ML/MIN (>60)
[2021-11-20 13:29] LABS: Anion Gap 6.4 mEq/L (5-15); Calcium 8.6 mg/dl (8.4-10.2); Carbon Dioxide 36 mmol/L (22.0-30.0); Glucose 299 mg/dl (74-100)
[2021-11-20 13:37] LABS: NT Pro Brain Natriuretic Pep. 625 pg/mL (0-125)
[2021-11-20 13:41] LABS: Troponin I 0.01 ng/ml (0.00-0.034)
--- NOTE | 2021-11-20 13:47 | HMH.EDGENADL ---
ED Disposition Clinical Impression: NSTEMI (non-ST elevated myocardial infarction) Disposition: Admitted As Inpatient Condition on Discharge: Fair - Critical Care Critical Care Time: No Attestation: On 11/20/21, the high probability of a clinically significant, sudden or life threatening deterioration of the following system(s) required my full and direct attention, intervention and personal management. The time I documented below is in addition to time spent performing reported procedures but includes the following listed in this critical care notation. Medical Decision Making - Jd Inquiry Pt receiving controlled substance: No Vital Signs: 11/20/21 12:40 11/20/21 12:45 11/20/21 13:00 Temperature 98.1 F Temperature Source Oral Pulse Rate 117 H 97 H Pulse Rate [Right Radial] 113 H Respiratory Rate 13 14 16 Blood Pressure 185/102 H 159/96 H Blood Pressure [Right Arm] 185/102 H Blood Pressure Mean 117 Blood Pressure Mean [Right Arm] 129 Blood Pressure Source [Right Arm] Automatic Cuff Blood Pressure Position [Right Arm] Sitting 02 Sat by Pulse Oximetry 97 97 95 Oxygen Delivery Method Room Air 11/20/21 13:31 11/20/21 14:00 11/20/21 14:30 Temperature Temperature Source Pulse Rate 96 H 92 H 94 H Pulse Rate [Right Radial] Respiratory Rate 14 12 13 Blood Pressure 146/74 H 139/81 122/69 Blood Pressure [Right Arm] Blood Pressure Mean 98 100 98 Blood Pressure Mean [Right Arm] Blood Pressure Source [Right Arm] Blood Pressure Position [Right Arm] 02 Sat by Pulse Oximetry 96 95 96 Oxygen Delivery Method 11/20/21 15:00 11/20/21 15:30 11/20/21 16:31 Temperature Temperature Source Pulse Rate 85 86 80 Pulse Rate [Right Radial] Respiratory Rate 12 14 12 Blood Pressure 129/88 128/85 192/95 H Blood Pressure [Right Arm] Blood Pressure Mean 104 107 127 Blood Pressure Mean [Right Arm] Blood Pressure Source [Right Arm] Blood Pressure Position [Right Arm] 02 Sat by Pulse Oximetry 97 97 98 Oxygen Delivery Method 11/20/21 17:00 11/20/21 17:30 11/20/21 18:00 Temperature Temperature Source Pulse Rate 78 90 91 H Pulse Rate [Right Radial] Respiratory Rate 16 17 13 Blood Pressure 141/87 H 198/98 H 181/96 H Blood Pressure [Right Arm] Blood Pressure Mean 115 115 124 Blood Pressure Mean [Right Arm] Blood Pressure Source [Right Arm] Blood Pressure Position [Right Arm] 02 Sat by Pulse Oximetry 98 98 99 Oxygen Delivery Method - Lab Data Lab Results 11/20/21 12:40: WBC 13.3 H, RBC 5.13, Hgb 16.3, Hct 50.4, MCV 98.3 H, MCH 31.7 H, MCHC 32.3, RDW 13.5, Plt Count 265, MPV 8.1, Neut % (Auto) 65.6, Lymph % (Auto) 26.1, Van Zandt % (Auto) 4.2, Eos % (Auto) 2.2, Baso % (Auto) 1.9, Neut # (Auto) 8.7 H, Lymph # (Auto) 3.5, Van Zandt # (Auto) 0.6, Eos # (Auto) 0.3, Baso # (Auto) 0.3 H 11/20/21 12:40: Sodium 139, Potassium 3.4 L, Chloride 100, Carbon Dioxide 36 H, Anion Gap 6.4, BUN 5 L, Creatinine 0.70, Estimated Creat Clear 9, Estimated GFR 115, Est GFR ( Amer) 139, Glucose 299 H, Calcium 8.6, Troponin I 0.01 11/20/21 12:40: NT-Pro-B Natriuret Pep 625 H 11/20/21 16:03: Troponin I 1.04 H 11/20/21 18:00: SARS-CoV-2 (PCR) Not detected, Influenza A Untype (PCR) Not detected, Influenza Type B (PCR) Not detected 11/20/21 18:33: Troponin I 4.70 H Result diagrams: 11/20/21 12:40 11/20/21 12:40 Orders (Tests/Meds): ED MEDICATIONS Generic Name Dose Route Start Last Admin Trade Name Freq PRN Reason Stop Dose Admin Lorazepam 0.5 mg 11/20/21 21:45 Lorazepam 0.5mg Tablet PO 11/20/21 21:46 ONCE ONE Metoprolol Tartrate 50 mg 11/20/21 20:30 11/20/21 21:03 Metoprolol Tartrate 50mg Tablet PO 12/20/21 20:29 50 mg Q8H LALITA Administration Nitroglycerin 0.5 gm 11/20/21 21:45 Nitroglycerin 1 Gm Ointment TD 11/20/21 21:46 ONCE ONE Oxycodone HCl 15 mg 11/20/21 23:00 Oxycodone 10mg Extended Release Tab.Er.
[2021-11-20 17:21] LABS: Troponin I 1.04 ng/ml (0.00-0.034)
--- NOTE | 2021-11-20 17:22 | PC.NURSE ---
has been paged.
--- NOTE | 2021-11-20 17:23 | PC.NURSE ---
Dr Franklin spoke with Dr Wade.
--- NOTE | 2021-11-20 17:28 | PC.NURSE ---
Dr Presley garsia for Dr Mike pt.
--- NOTE | 2021-11-20 17:42 | PC.NURSE ---
Notifed by ER that 2-10 mg oxycodone IR and 2-400 mg gabapentin are needed from the [facility]ni for patient. Meds pulled and sent to ER through pneumatic tube system. Esther in ER notified. Also notified of admission. cork tile floor layer notified, pt to be admitted to 212. Admissions notified
[2021-11-20 18:14] LABS: Coronavirus 19, PCR Not Detected (NotDetected); Influenza A, PCR Not Detected (NotDetected); Influenza B, PCR Not Detected (NotDetected)
--- NOTE | 2021-11-20 18:31 | PC.NURSE ---
Called report to Patricia Ca
--- NOTE | 2021-11-20 18:33 | PC.NURSE ---
Pt refused to have third troponin drawn
--- NOTE | 2021-11-20 18:43 | PC.NURSE ---
pt to med surg at this time
--- NOTE | 2021-11-20 20:00 | PC.NURSE ---
1999 troponin level 4.[address] cline, dr cline states to let cardiology know, ekg ordered, dr kwok was called with troponin 4.7 repeated and verified, also reported b/p 190/100, orders received for metoprolol p.o. 50mg now and then every 8 hours, pt denies chest pain at this time, only soa, 02 sats 97% on room air. ekg was taken to er for evaluation and read by dr gan.
--- NOTE | 2021-11-20 20:21 | ECG_ITS ---
APPROVED REPORT Exam: Resting ECG HR:77 bpm ECG Measurements Heart Rate 77 AXES ND 178 P 77 QRSd 88 QRS 73 QT 361 T 78 QTc 393 Conclusion SINUS RHYTHM MODERATE T-WAVE ABNORMALITY, CONSIDER ANTEROLATERAL ISCHEMIA [-0.1+ mV T-WAVE IN V3-V6] ABNORMAL ECG UNCONFIRMED REPORT Electronically signed by : Ab Lindsay MD 11/21/2021 15:10:47
--- NOTE | 2021-11-20 21:20 | PC.NURSE ---
2119 dr cline called with pt complaints of feeling anxious and wanting something to help, pt c/o soa and slight chest tightness, orders received for nitropaste 1/2 inch to cw if b/p is stable after metoprolol, ativan 0.5mg order recieved x1 dose as needed for anxiety.
--- NOTE | 2021-11-20 21:30 | PC.NURSE ---
2129 b/p 131/55 after metoprolol and reported to dr cline, dr cline stated to hold nitropaste for now and give if pain or pressure worsens, pt stated a little tightness but not as bad as it was.
--- NOTE | 2021-11-20 21:45 | PC.NURSE ---
dr cline made aware that pt is diabetic and takes insulin at home along with p.o.; orders received for low intensity sliding scale, fsbs ac/hs repeated and verified.
[2021-11-21] VITALS (12 sets, daily range): BP systolic 94–196; BP diastolic 48–100; PULSE 50–86; RESP 16–18; TEMP 36.4–36.9; O2SAT 92–96; BMI 54.8
--- NOTE | 2021-11-21 04:00 | PC.NURSE ---
PT B/P ELEVATED AND MEDICATED WITH METOPROLOL, PT COMPLAINS OF CHEST PRESSURE AND TIGHTNESS MILD, PT WAS GIVEN 1L 02 PNC FOR COMFORT BUT CHOSE NOT TO WEAR, OXYCONTIN PO GIVEN ORDERED, PT ANXIOUS ABOUT POSSIBLE MEDICAL RECORDS AUDITOR, TELE NSR
[2021-11-21 06:43] LABS: POC Glucose,Bedside 227 (70-110)
[2021-11-21 06:43] LABS: POC Glucose,Bedside 182 (70-110)
[2021-11-21 07:52] LABS: Basophils # 0.1 K/mm3 (0-0.2); Basophils % 0.8 % (0.1-2.0); Eosinophils # 0.4 K/mm3 (0.0-0.4); Eosinophils % 2.4 % (0.1-12.0); Hematocrit 49.4 % (42.0-52.0); Hemoglobin 16.7 g/dL (14.1-18.0); Lymphocytes % 17.7 % (10-50); Mean Corpuscular HGB Conc 33.7 g/dL (31.8-35.4); Mean Corpuscular Hemoglobin 31.2 pg (27.0-31.2); Mean Corpuscular Volume 92.4 fl (80-94); Mean Platelet Volume 7.6 fl (7.4-10.4); Monocytes # 0.7 K/mm3 (0.1-1.0); Monocytes % 4.1 % (1.7-9.3); Neutrophils # 12.8 K/mm3 (1.8-7.8); Neutrophils % 74.9 % (37.0-80.0); Platelet Count 282 K/mm3 (142-424); Red Blood Count 5.35 M/mm3 (4.60-6.20); White Blood Count 17.1 K/mm3 (4.8-10.8)
[2021-11-21 07:59] LABS: MANUAL DIFFERENTIAL MANUAL DIFFERENTIAL (MANUAL DIFF)
[2021-11-21 08:00] LABS: Chloride 106 mmol/L (98-107); Potassium 3.3 mmoL/L (3.5-5.1); Sodium 140 mmol/L (136-145)
[2021-11-21 08:03] LABS: Anion Gap 9.3 mEq/L (5-15); Blood Urea Nitrogen 4 mg/dl (9-20); Calcium 8.7 mg/dl (8.4-10.2); Carbon Dioxide 28 mmol/L (22.0-30.0); Creatinine Clearance Estimated 9 mL/min (50-200); Estimated Glomerular Filt Rate 137 ml/min (>60); GFR (African American) 166 ML/MIN (>60); Glucose 186 mg/dl (74-100); Magnesium 1.8 mg/dl (1.6-2.3)
[2021-11-21 09:48] LABS: Eosinophils % 1 % (0-3); Lymphocytes % 18 % (10-50); Monocytes % 4 % (2-9); Neutrophils % 77 % (42-76); Platelet Estimate Normal; Total Cells Counted 100
[2021-11-21 09:52] LABS: RBC Morphology Normal
--- NOTE | 2021-11-21 11:09 | HMH.HP ---
*Admission Date: 11/20/21 *Chief complaint: chest pain *History of present illness: this patient presented to ed - a 61-year-old male presenting to the emergency department with history of nonexertional chest pain today that is nonradiating and described as heaviness. Patient has not had shortness of breath, fever, vomiting, diarrhea or other constitutional symptoms and states that he has had increased cough recently. Patient is a smoker and states that he is trying to stop. Patient denies any known drug allergies and has past medical history of myocardial infarction, stating that his chest pain does not quite feel like when he had his heart attack. Patient also is a diabetic and has surgical history of bilateral AKA. pt was admitted for treatment and eval [facility] History I have reviewed the patient's past medical history: Yes Medical History: Reports:: Anxiety, Arrhythmia, Carotid Stenosis, Chronic Obstructive Pulmonary Disease (COPD), Coronary Artery Disease, Diabetes Mellitus Type 2, Gastroesophageal Reflux Disease(GERD), Hyperlipidemia, Hypertension, Lung Disease, Myocardial Infarction, Peripheral Artery Disease Denies:: Cancer, Diabetes Mellitus Type 1, Internal Pacemaker, MRSA, Seizures *Have you ever received a pneumonia vaccine?: No *Have you received a flu vaccine this season?: No Other Medical History: Reports: Blood Transfusion Reaction, Other Laterality Cases: Left: Carotid Endarterectomy, Bilateral: Tonsillectomy, Other Other Surgeries: Yes: Angioplasty, Cancer Surgery, Cardiac Catheterization, Cholecystectomy, Colonoscopy, Coronary Stent, Hernia Repair, Other. No: Pacemaker Amputation: Yes (BOTH LEGS) Fractures: Yes - *Social History Last grade of school completed: 11th or 12th Smoking Status: Current every day smoker Tobacco Type: cigarettes # Packs/Day (cigarettes): 1 #Yrs smoked (if former smoker): 46 Alcohol Intake: never Alcohol Intake Frequency:: holidays/special occasions only Substance Use Type: former substance user *Occupational Status:: disabled Housing: apartment Household Members: none *Travel in the last 8 weeks: None - Psychiatric History Pschychiatric History:: Reports:: Anxiety Family Hx:: Cancer, Diabetes, Heart Attack, Hypertension Review of Systems - Review of Systems Review of systems:: pertinent systems reviewed and negative unless documented below - Constitutional Denies fever(s) - Eyes Denies change in vision - ENT Denies facial pain - *Cardiovascular Reports chest pain, Reports shortness of breath - *Respiratory Denies cough - *Gastrointestinal Denies abdominal pain - *Genitourinary Denies blood in urine - *Musculoskeletal Denies joint pain - Integumentary/Breasts Denies rash - *Neurologic Denies localized weakness - Psychiatric Denies anxiety Meds Home Medications Medication Instructions Recorded Confirmed Type oxycodone 15 mg tablet 15 mg PO Q6HP PRN tab 09/23/19 11/20/21 History gabapentin 800 mg tablet 800 mg PO QID #120 tab 08/11/20 11/20/21 Rx metformin 1,000 mg tablet 1,000 mg PO BID tab 03/02/21 11/20/21 History Aspirin [Low Dose Aspirin EC] 81 mg PO DAILY 10/04/21 11/20/21 History Budesonide/Formoterol Fumarate 2 puffs IH BID 10/04/21 11/20/21 History [Budesonide-Formoterol 80-4.5] Lansoprazole 30 mg PO DAILY 10/04/21 11/20/21 History Linagliptin [Tradjenta 5mg tablet] 5 mg PO DAILY 10/04/21 11/20/21 History glipiZIDE [Glipizide ER] 10 mg PO BID 10/04/21 11/20/21 History Atorvastatin Calcium [Lipitor 80mg 80 mg PO DAILY 30 Days #30 tab 10/05/21 11/20/21 Rx Tablet*] bisoproloL fumarate [Bisoprolol 10 mg PO DAILY 30 Days #30 tab 10/05/21 11/20/21 Rx Fumarate] insulin glargine 100 unit/mL (3 10 unit SQ QHS #3 ml 10/05/21 11/20/21 Rx mL) subcutaneous pen nitroglycerin 0.4 mg sublingual 0.4 mg SUBLINGUAL Q5M PRN #30 tab 10/20/21 11/20/21 Rx tablet clopidogrel 75 mg tablet 75 mg PO DAILY #90 tab 10/26/21 11/20/21 Rx Irbesartan [Avap
--- NOTE | 2021-11-21 13:32 | P.CONPHA_ITS ---
[facility] Pharmacy VTE Monitoring - Patient Demographics Admission date: 11/21/21 Report Date: 11/21/21 Time: 13:32 Allergies/Adverse Reactions: Patient Allergies No Known Allergies Allergy (Verified 11/16/21 14:43) Height: 1.07 m Weight: 62.777 kg Patient Problems: Current Active Problems NSTEMI (non-ST elevated myocardial infarction) (Acute) - VTE Risk Labs: VTE Related Lab Results Hgb 16.7 g/dL (14.1-18.0) 11/21/21 06:50 Hct 49.4 % (42.0-52.0) 11/21/21 06:50 Plt Count 282 K/mm3 (142-424) 11/21/21 06:50 BUN 4 mg/dl (9-20) L 11/21/21 06:50 Creatinine 0.60 mg/dl (0.66-1.25) L 11/21/21 06:50 Estimated Creat Clear 9 mL/min (50-200) 11/21/21 06:50 Was VTE Risk Assessment Performed: Yes VTE Score: 5 VTE Risk Level: Low Risk - Prophylaxis Location of Applied Device: Not Applicable (BILATERAL LEG AMPUTATION)
[2021-11-22] VITALS (22 sets, daily range): BP systolic 89–128; BP diastolic 52–97; PULSE 60–85; RESP 16–20; TEMP 36.6–37.2; O2SAT 90–100; BMI 55.5
--- NOTE | 2021-11-22 | IR_ITS ---
APPROVED REPORT Patient Location: Inpatient PROCEDURES Left heart catheterization Left ventriculogram Selective coronary angiogram Drug-eluting stent deployment to the obtuse marginal artery Drug-eluting stent deployment to the ostial left anterior descending artery Drug-eluting stent deployment to the ostial left main artery extending into the proximal circumflex artery Drug-eluting stent deployment to the posterior descending artery off the right coronary artery Drug-eluting stent deployment to the ostial proximal dominant right coronary INDICATION Acute non-ST elevation myocardial infarction, Severe three-vessel coronary artery disease, Refusal by CT surgery to perform surgical revascularization, Informed consent was obtained prior to the procedure. COMPLICATIONS None Estimated Blood Loss: Less than 10 mls TECHNIQUE One percent lidocaine used to anesthetize the right anterior aspect of the wrist. The right radial artery was accessed via the Seldinger technique. A 6 Pashto sheath was placed in the right radial artery. 2.5 mg of verapamil, 800 mcg of nitroglycerin, 1mg Lidocaine and 3000 U Heparin were given through the arterial sheath. The papa catheter was also used to perform left heart catheterization, left ventriculogram and selective coronary angiogram. At the end the diagnostic angiogram therapeutic heparin was administered giving a therapeutic ACT and the guide catheter was placed in the left main artery followed by a Choice PT extra-support wire being placed in the first obtuse marginal artery. A 2.5 x 23 mm Xience drug-eluting stent was deployed at 24 cara reducing the severe stenosis to 0%. The wire was pulled back and placed into the LAD where 2.5 x 12 mm Xience drug-eluting stent was deployed in the ostial proximal segment of the LAD at 24 cara. The wire was pulled back and placed into the circumflex artery where a 2 mm balloon was used to predilate the struts. A 3 mm x 18 mm Xience drug-eluting stent was then placed in the left main artery extending into the proximal circumflex artery and deployed at 24 cara. The wire was pulled back and placed into the LAD where a 2.5 x 12 mm balloon was then deployed in the ostial segment of the LAD at 24 cara to post dilate. Apparatus was removed. ELGIN-3 flow was present before and after the procedure down all vessels. The guide catheter was placed into the right coronary artery where just like with the diagnostic angiogram there was severe dampening suggesting proximal ostial disease. The wire was placed in the posterior descending artery where a 2.5 x 8 mm Xience drug-eluting stent was deployed at 24 cara reducing the severe stenosis to 0%. A 3 mm x 38 mm Xience drug-eluting stent was then placed in the ostial proximal dominant right coronary artery and deployed at 24 cara reducing the severe stenosis to 0%. ELGIN-3 flow was present before and after the procedure. At the end of the procedure the apparatus was removed the sheath was removed good hemostasis was achieved using TR banding patient was transferred to the postop putting in stable condition ANGIOGRAPHIC RESULTS The left main artery Has distal 20 to 30% stenosis The left anterior descending artery Has an ostial hazy 60 to 70% stenosis followed by 30% disease with stents in the proximal to mid segments are widely patent with minimal in-stent restenosis. The LAD then has additional 30 and 40% mid vessel stenoses. The circumflex artery Is a codominant vessel and has an ostial hazy 40% stenosis followed by a proximal 40% stenosis. The first obtuse marginal artery has a proximal concentric 70 to 80% stenosis while the second obtuse marginal artery has an ostial proximal 60 to 70% stenosis Th
[2021-11-22 01:20] LABS: POC Glucose,Bedside 202 (70-110)
--- NOTE | 2021-11-22 06:55 | CA_ITS ---
APPROVED REPORT EXAM: Limited 2D Echocardiogram Packing Checker: Maryjane Thorpe RVT Ht: 3 ft 6 in Wt: 140lbs BSA: 1.24 BP: 181/96 mmHg Indications: NSTEMI,CP,ELEVATED TROP,HX APICAL THROMBUS,CAD,CM EF OF 30-35% ON 10/05/21,COPD,SNOKER,DM,HTN,HLD 2D Dimensions LVOT 2.33 cm (M/F) 1.5-2.5 M-Mode Dimensions RVDd 2.41 cm (0.9-2.6) LA Diam 2.55 cm (1.9-4.0) LVDd 3.64 cm (3.5-5.7) Ao Diam 3.16 cm (2.0-3.7) LVDs 2.94 cm (3.5-5.7) IVSd 1.19 cm (0.6-1.1) PWd 1.07 cm (0.6-1.1) EF (Teich) 40.40% FS 19.20% EDV (Teich) 55.90 mL ESV (Teich) 33.30 mL Conclusion 1. Limited echocardiogram was performed, estimated ejection fraction 50%, there is marked hypokinesis involving distal septum and apical wall, to exclude presence of thrombus repeat study with Definity contrast is recommended. Electronically signed by : Garland Reyna MD 11/22/2021 20:57:10
[2021-11-22 07:49] LABS: POC Glucose,Bedside 105 (70-110)
[2021-11-22 11:10] LABS: POC Glucose,Bedside 102 (70-110)
--- NOTE | 2021-11-22 12:36 | PC.NURSE ---
Addendum entered by Rosemary López RN 11/22/21 16:37: CARDIOLOGY DECIDED TO PROCEED WITH HEART CATH. PT ARRIVED BACK TO THE FLOOR AT 1540. VSS. PT HAD ATE A 6 INCH SUBWAY SANDWICH AND HAS BEEN SIPPING ON EFREN MIST. PT IS SLEEPING OFF AND ON. WILL CONTINUE TO MONITOR. Original Note: PT IS RESTING IN BED. MEDICATED PER MAR FOR BACK AND NECK DISCOMFORT. PT'S ONLY COMPLAINT THIS SHIFT IS THAT HE IS HUNGRY AND IS REALLY WANTING SOMETHING TO EAT AND DRINK. CARDIOLOGY IS STILL UNSURE ABOUT HEART CATH AT THIS TIME. LUNG SOUNDS CLEAR. ABDOMEN SOFT/NON TENDER WITH ACTIVE BOWEL SOUNDS. BILATERAL ABOVE KNEE AMPUTATIONS NOTED. PT STATES HIS LAST BOWEL MOVEMENT WAS 3 DAYS AGO. WILL CONTINUE TO MONITOR.
--- NOTE | 2021-11-22 13:05 | HMH.CNCARD ---
History of Present Illness Consult date: 11/22/21 Requesting physician: Anup Vaughn Consult reason: chest pain Chief complaint: chest pain History of present illness: This is a 61-year-old gentleman who presented to the emergency department with complaints of chest pain. He states that he started having heaviness in his chest on Monday and he states that this was associated with shortness of breath and a cough. The patient states that the pain got severe and he decided to come to the emergency department. It was also associated with nausea and diaphoresis. He states that he just has not felt well. The patient did undergo left cardiac catheterization in September and had stenting at that time but was also recommended to have coronary artery bypass grafting. The patient went to see the surgeons in [facility] and he was declined surgery and told that he was too sick to proceed with surgery. He is currently in the process of seeing surgeons at the [facility]. But they told him he would have to stop smoking for 30 days. The patient has yet to stop smoking. He is a diabetic and is bilateral lower extremity amputee. The patient states he is very concerned with his chest pain and feels like something needs to be done right away. He denies any fever, chills, vomiting, diarrhea, PND or orthopnea. [facility] History I have reviewed the patient's past medical history: Yes Medical History: Reports:: Anxiety, Arrhythmia, Carotid Stenosis, Chronic Obstructive Pulmonary Disease (COPD), Coronary Artery Disease, Diabetes Mellitus Type 2, Gastroesophageal Reflux Disease(GERD), Hyperlipidemia, Hypertension, Lung Disease, Myocardial Infarction, Peripheral Artery Disease Denies:: Cancer, Diabetes Mellitus Type 1, Internal Pacemaker, MRSA, Seizures *Have you ever received a pneumonia vaccine?: No *Have you received a flu vaccine this season?: No Other Medical History: Reports: Blood Transfusion Reaction, Other Laterality Cases: Left: Carotid Endarterectomy, Bilateral: Tonsillectomy, Other Other Surgeries: Yes: Angioplasty, Cancer Surgery, Cardiac Catheterization, Cholecystectomy, Colonoscopy, Coronary Stent, Hernia Repair, Other. No: Pacemaker Amputation: Yes (BOTH LEGS) Fractures: Yes - *Social History Last grade of school completed: 11th or 12th Smoking Status: Current every day smoker Tobacco Type: cigarettes # Packs/Day (cigarettes): 1 #Yrs smoked (if former smoker): 46 Alcohol Intake: never Alcohol Intake Frequency:: holidays/special occasions only Substance Use Type: former substance user *Occupational Status:: disabled Housing: apartment Household Members: none *Travel in the last 8 weeks: None - Psychiatric History Pschychiatric History:: Reports:: Anxiety Family Hx:: Cancer, Diabetes, Heart Attack, Hypertension Meds Home Medications Medication Instructions Recorded Confirmed Type oxycodone 15 mg tablet 15 mg PO Q6HP PRN tab 09/23/19 11/20/21 History gabapentin 800 mg tablet 800 mg PO QID #120 tab 08/11/20 11/20/21 Rx metformin 1,000 mg tablet 1,000 mg PO BID tab 03/02/21 11/20/21 History Aspirin [Low Dose Aspirin EC] 81 mg PO DAILY 10/04/21 11/20/21 History Budesonide/Formoterol Fumarate 2 puffs IH BID 10/04/21 11/20/21 History [Budesonide-Formoterol 80-4.5] Lansoprazole 30 mg PO DAILY 10/04/21 11/20/21 History Linagliptin [Tradjenta 5mg tablet] 5 mg PO DAILY 10/04/21 11/20/21 History glipiZIDE [Glipizide ER] 10 mg PO BID 10/04/21 11/20/21 History Atorvastatin Calcium [Lipitor 80mg 80 mg PO DAILY 30 Days #30 tab 10/05/21 11/20/21 Rx Tablet*] bisoproloL fumarate [Bisoprolol 10 mg PO DAILY 30 Days #30 tab 10/05/21 11/20/21 Rx Fumarate] insulin glargine 100 unit/mL (3 10 unit SQ QHS #3 ml 10/05/21 11/20/21 Rx mL) subcutaneous pen nitroglycerin 0.4 mg sublingual 0.4 mg SUBLINGUAL Q5M PRN #30 tab 10/20/21 11/20/21 Rx tablet clopidogrel 75 mg tablet 75 mg PO DAILY #90 tab 10/26/21 11/20/21 Rx Irbesartan [Avapro
[2021-11-22 15:09] LABS: CATHL Activated Clotting Time > 400 SEC (74-125)
--- NOTE | 2021-11-22 15:55 | P.PN_ITS ---
Internal Medicine - PN: Subj *Date: 11/22/21 *Time: 08:40 Exam Vital signs and Labs for Last 24 Hours: Temp Pulse Resp BP Pulse Ox 98.1 F 76 20 114/73 93 L 11/22/21 15:40 11/22/21 15:40 11/22/21 15:40 11/22/21 15:40 11/22/21 15:40 Laboratory Results - last 24 hr 11/21/21 20:39: POC Glucose 202 H 11/22/21 05:45: POC Glucose 105 11/22/21 10:55: POC Glucose 102 11/22/21 14:33: Activated Clotting Time > 400 H* I & O for Last 24 hours: Intake & Output 11/20/21 11/21/21 11/22/21 11/23/21 11:59 11:59 11:59 11:59 Intake Total 400 / 400 600 / 600 Output Total 1650 / 1650 800 / 800 Balance -1250 / -1250 -200 / -200 Weight 138 lb 6.4 oz 140 lb 6 oz - Constitutional no acute distress - *Routine HEENT Exam Head: Present: normocephalic Eye: Present: PERRL ENT: Present: mucous membranes moist - *Routine Neck Exam Present: supple. Absent: lymphadenopathy - *Routine Respiratory Exam Present: CTA bilaterally - *Routine Cardiovascular Exam Present: RRR - *Routine Abdominal Exam Present: soft, normoactive bowel sounds. Absent: tenderness - *Routine Extremities Exam Present: amputation. Absent: cyanosis, clubbing, edema Comments: najma aka - *Routine Skin Exam Present: warm. Absent: rash - *Routine Neurological Exam Present: alert, oriented X3 Assessment and Plan (1) NSTEMI (non-ST elevated myocardial infarction) Status: Acute Category: Medical Code(s): I21.4 - Non-ST elevation (NSTEMI) myocardial infarction (2) Tobacco use Status: Acute Category: Social Hx Code(s): Z72.0 - Tobacco use (3) Status post bilateral below knee amputation Status: Chronic Category: Surgical Code(s): Z89.512 - Acquired absence of left leg below knee; Z89.511 - Acquired absence of right leg below knee (4) HTN (hypertension) Status: Chronic Qualifiers: Hypertension type: primary hypertension Qualified Code(s): I10 - Essential (primary) hypertension Category: Medical Code(s): I10 - Essential (primary) hypertension (5) DDD (degenerative disc disease), cervical Status: Acute Category: Medical Code(s): M50.30 - Other cervical disc degene ration, unspecified cervical region (6) CAD (coronary artery disease) Status: Chronic Qualifiers: Coronary Disease-Associated Artery/Lesion type: [place] artery [place] vs. transplanted heart: [place] heart Associated angina: without angina Qualified Code(s): I25.10 - Atherosclerotic heart disease of [place] coronary artery without angina pectoris Category: Medical Code(s): I25.10 - Atherosclerotic heart disease of [place] coronary artery without angina pectoris (7) COPD (chronic obstructive pulmonary disease) Status: Chronic Qualifiers: COPD type: unspecified COPD Qualified Code(s): J44.9 - Chronic obstructive pulmonary disease, unspecified Category: Medical Code(s): J44.9 - Chronic obstructive pulmonary disease, unspecified - Assessment and plan all Dx Assessment and Plan for all problems:: rounded with dr gan all orders per dr gan cardiology consult
[2021-11-22 16:40] LABS: POC Glucose,Bedside 87 (70-110)
[2021-11-22 20:45] LABS: POC Glucose,Bedside 225 (70-110)
[2021-11-23] VITALS: BP 108/60; PULSE 80; PULSE 86; RESP 16; TEMP 36.7; O2SAT 95
[2021-11-23 04:00] VITALS: BP 115/58; PULSE 80; RESP 14; TEMP 36.7; O2SAT 93
[2021-11-23 05:00] VITALS: BMI 53.8
--- NOTE | 2021-11-23 05:29 | PC.NURSE ---
pt was lethargic and hypotensive at beginning of shift, rested t/o most of shift, has remained on room air with O2 sats 91-95, HR 60-86, systolic BP 90-115, has complained of pain in neck and back, right radial cath site with dressing in place, C/D/I, 1050 mL of urine out so far this shift
[2021-11-23 07:01] LABS: POC Glucose,Bedside 105 (70-110)
[2021-11-23 07:26] LABS: Basophils # 0.2 K/mm3 (0-0.2); Basophils % 1.3 % (0.1-2.0); Eosinophils # 0.2 K/mm3 (0.0-0.4); Eosinophils % 1.5 % (0.1-12.0); Hematocrit 48.5 % (42.0-52.0); Hemoglobin 15.9 g/dL (14.1-18.0); Lymphocytes # 2.8 K/mm3 (0.7-4.5); Lymphocytes % 24.1 % (10-50); Mean Corpuscular HGB Conc 32.9 g/dL (31.8-35.4); Mean Corpuscular Hemoglobin 31.2 pg (27.0-31.2); Mean Corpuscular Volume 94.8 fl (80-94); Mean Platelet Volume 7.6 fl (7.4-10.4); Monocytes # 0.6 K/mm3 (0.1-1.0); Monocytes % 4.9 % (1.7-9.3); Neutrophils % 68.2 % (37.0-80.0); Platelet Count 277 K/mm3 (142-424); Red Blood Count 5.12 M/mm3 (4.60-6.20); Red Cell Distribution Width 13.6 % (11.5-17.5); White Blood Count 11.7 K/mm3 (4.8-10.8)
[2021-11-23 07:27] LABS: Chloride 104 mmol/L (98-107); Potassium 4.1 mmoL/L (3.5-5.1); Sodium 139 mmol/L (136-145)
[2021-11-23 07:29] LABS: Blood Urea Nitrogen 13 mg/dl (9-20); Creatinine Clearance Estimated 9 mL/min (50-200); Estimated Glomerular Filt Rate 98 ml/min (>60); GFR (African American) 119 ML/MIN (>60)
[2021-11-23 07:30] LABS: Anion Gap 8.1 mEq/L (5-15); Calcium 9.5 mg/dl (8.4-10.2); Carbon Dioxide 31 mmol/L (22.0-30.0); Chol/HDL Ratio 10.7 (1-3.5); Cholesterol 225 mg/dl (140-200); Glucose 128 mg/dl (74-100); HDL Cholesterol 21 mg/dl (40-60); Triglycerides 233 mg/dl (30-150); VLDL Cholesterol 47 mg/dL (0-40)
[2021-11-23 07:41] LABS: Direct LDL Cholesterol 153.14 mg/dL (100-129)
[2021-11-23 08:00] VITALS: BP 147/72; PULSE 60; PULSE 70; RESP 17; TEMP 36.6; O2SAT 94
--- NOTE | 2021-11-23 10:13 | HMH.PNCARD ---
Subjective Date: 11/23/21 Time: 09:30 Principal diagnosis: nonstemi, CAD Interval history: This is a 61-year-old gentleman who presented to the emergency department complaints of chest pain. The patient had a non-ST elevation myocardial infarction and underwent left cardiac catheterization yesterday. The patient had severe three-vessel disease and underwent complete revascularization of his coronary arteries. He tolerated procedure well and will be on Plavix and aspirin for dual antiplatelet therapy. This morning he denies any chest pain or pressure. He denies any shortness of breath or edema. He denies any fever, chills, nausea, vomiting, diarrhea, PND or orthopnea. The patient states that he is really going to try to stop smoking when he gets home because he does not want to have any worsening of his coronary artery disease. Exam Vital signs and Labs for Last 24 Hours: Temp Pulse Resp BP Pulse Ox 97.8 F 70 17 147/72 H 94 L 11/23/21 08:00 11/23/21 08:00 11/23/21 08:00 11/23/21 08:00 11/23/21 08:00 Laboratory Results - last 24 hr 11/22/21 10:55: POC Glucose 102 11/22/21 14:33: Activated Clotting Time > 400 H* 11/22/21 16:19: POC Glucose 87 11/22/21 20:25: POC Glucose 225 H 11/23/21 05:17: POC Glucose 105 11/23/21 06:50: WBC 11.7 H D, RBC 5.12, Hgb 15.9, Hct 48.5, MCV 94.8 H, MCH 31.2, MCHC 32.9, RDW 13.6, Plt Count 277, MPV 7.6, Neut % (Auto) 68.2, Lymph % (Auto) 24.1, [place] % (Auto) 4.9, Eos % (Auto) 1.5, Baso % (Auto) 1.3, Neut # (Auto) 8.0 H, Lymph # (Auto) 2.8, [place] # (Auto) 0.6, Eos # (Auto) 0.2, Baso # (Auto) 0.2 11/23/21 06:50: Sodium 139, Potassium 4.1 D, Chloride 104, Carbon Dioxide 31 H, Anion Gap 8.1, BUN 13 D, Creatinine 0.80 D, Estimated Creat Clear 9, Estimated GFR 98, Est GFR ( Amer) 119 D, Glucose 128 H, Calcium 9.5, Triglycerides 233 H, Cholesterol 225 H, LDL Cholesterol Direct 153.14 H, VLDL Cholesterol 47 H, HDL Cholesterol 21 L, Cholesterol/HDL Ratio 10.7 H I & O for Last 24 hours: Intake & Output 11/20/21 11/21/21 11/22/21 11/23/21 23:59 23:59 23:59 23:59 Intake Total 1000 / 1000 Output Total 400 / 900 1650 / 1950 1050 / 1050 800 / 800 Balance -400 / -500 -650 / -950 -1050 / -1050 -800 / -800 Weight 135 lb 8 oz 138 lb 6.4 oz 140 lb 6 oz 135 lb 12.8 oz Narrative: Limited echo shows: 1. Limited echocardiogram was performed, estimated ejection fraction 50%, there is marked hypokinesis involving distal septum and apical wall, to exclude presence of thrombus repeat study with Definity contrast is recommended. Left heart cath shows: The left main artery Has distal 20 to 30% stenosis The left anterior descending artery Has an ostial hazy 60 to 70% stenosis followed by 30% disease with stents in the proximal to mid segments are widely patent with minimal in-stent restenosis. The LAD then has additional 30 and 40% mid vessel stenoses. The circumflex artery Is a codominant vessel and has an ostial hazy 40% stenosis followed by a proximal 40% stenosis. The first obtuse marginal artery has a proximal concentric 70 to 80% stenosis while the second obtuse marginal artery has an ostial proximal 60 to 70% stenosis The right coronary artery Has proximal 60 to 70% stenosis with a mid vessel 40% stenoses. The posterior descending artery has an ostial concentric 90% stenosis The WADE ventriculogram reveals Preserved at 50% The left ventricular end-diastolic pressure 10 mmHg IMPRESSION Severe three-vessel coronary artery disease Successful complete revascularization as described above Preserved ejection fraction Normal left ventricular end-diastolic pressure PLAN 1. Dual antiplatelet therapy 2. Standard therapy for ischemic heart disease 3. Risk factor modification 4. Avoidance of tobacco products 5. LDL less than 55 6. Cardiac rehabilitation - Constitutional no acute distress, average body habitus - *Routine HEENT Exam Head: Present: normocephalic, atraumatic Eye: P
--- NOTE | 2021-11-23 11:14 | HMH.DCSUM ---
General - General Admission date:: 11/20/21 Discharge date: 11/23/21 HPI HPI: this patient presented to ed - a 61-year-old male presenting to the emergency department with history of nonexertional chest pain today that is nonradiating and described as heaviness. Patient has not had shortness of breath, fever, vomiting, diarrhea or other constitutional symptoms and states that he has had increased cough recently. Patient is a smoker and states that he is trying to stop. Patient denies any known drug allergies and has past medical history of myocardial infarction, stating that his chest pain does not quite feel like when he had his heart attack. Patient also is a diabetic and has surgical history of bilateral AKA. pt was admitted for treatment and eval Hospital Course Hospital Course: 61-year-old male patient presents to the emergency department with reports of nonradiating chest pain described as heaviness. He denies any shortness of breath, fever/chills/body aches, or nausea/vomiting/diarrhea, and only reports nonproductive cough. He does admit a prior heart attack and reports this pain does not feel the same Troponin max 4.7 Limited echo shows: 1. Limited echocardiogram was performed, estimated ejection fraction 50%, there is marked hypokinesis involving distal septum and apical wall, to exclude presence of thrombus repeat study with Definity contrast is recommended. Left heart cath shows: The left main artery Has distal 20 to 30% stenosis The left anterior descending artery Has an ostial hazy 60 to 70% stenosis followed by 30% disease with stents in the proximal to mid segments are widely patent with minimal in-stent restenosis. The LAD then has additional 30 and 40% mid vessel stenoses. The circumflex artery Is a codominant vessel and has an ostial hazy 40% stenosis followed by a proximal 40% stenosis. The first obtuse marginal artery has a proximal concentric 70 to 80% stenosis while the second obtuse marginal artery has an ostial proximal 60 to 70% stenosis The right coronary artery Has proximal 60 to 70% stenosis with a mid vessel 40% stenoses. The posterior descending artery has an ostial concentric 90% stenosis The WADE ventriculogram reveals Preserved at 50% The left ventricular end-diastolic pressure 10 mmHg IMPRESSION Severe three-vessel coronary artery disease Successful complete revascularization as described above Preserved ejection fraction Normal left ventricular end-diastolic pressure PLAN 1. Dual antiplatelet therapy 2. Standard therapy for ischemic heart disease 3. Risk factor modification 4. Avoidance of tobacco products 5. LDL less than 55 6. Cardiac rehabilitation (1) NSTEMI (non-ST elevated myocardial infarction) Cardiac catheterization with multiple stents, metoprolol 75 mg p.o. twice daily, Plavix and aspirin daily. (2) Tobacco use Discussed medical urgency of smoking cessation he reports he has officially stopped smoking we will reassess at appointments. He denies needing any medications/patches for this (3) Status post bilateral below knee amputation Patient states he has wheelchair and propel self (4) HTN (hypertension) Metoprolol 75 mg p.o. twice daily, irbesartan 150 mg p.o. daily (5) DDD (degenerative disc disease), cervical Chronic pain medication (6) CAD (coronary artery disease) High-dose statin, DAPT, metoprolol, stop smoking (7) COPD (chronic obstructive pulmonary disease) Has multiple inhalers he uses reports using per instruction. Chest x-ray revealed COPD, chest CTA revealed no pulmonary embolism (8) HLD (hyperlipidemia) On high-dose statin Cardiology has seen and recommends: Plan: 1. This is a 61-year-old gentleman who presented to the emergency department complaints of chest pain. Patient had an elevated troponin consistent with a non-ST ovation myocardial infarction. He underwent left cardiac catheterization yesterday an
--- NOTE | 2021-11-23 12:24 | HMH.PHACLD ---
Chris Pérez JR has received discharge medication counseling on the following medications: ASPIRIN PLAVIX METOPROLOL (NEW) IRBESARTAN ATORVASTATIN PATIENT IS TO STOP BISOPROLOL. NEW PRESCRIPTION FOR METOPROLOL WAS SENT TO [facility] IN [place]. PATIENT VERBALIZED UNDERSTANDING AND HAD NO QUESTIONS AT THIS TIME. -BYRON GARDINER, TORID
[2021-11-23 13:12] LABS: POC Glucose,Bedside 171 (70-110)
--- NOTE | 2021-11-24 15:17 | CARE MANAGER ---
Spoke with patient in follow-up phone interview post discharge, patient states he has follow-up appointments and medications prescribed. No further needs at this time.
== END 2021-11-23 12:35 | disposition home or self-care (01) | DRG 247 ==
LOC: ER 13:26 → 2ND 17:50
PROVIDERS: Internal Medicine; Nurse Practitioner Family; Admitting Provider Internal Medicine Adolescent Medicine; Emergency Provider Student in an Organized Health Care Education/Training Program; Visit Provider Family Medicine
PROC: 027135Z Dilation of Coronary Artery, Two Arteries with Two Drug-eluting Intraluminal Devices, Percutaneous Approach (ICD-10-PCS; principal; 2021-11-22 12:15)
DX: F17.210 Nicotine dependence, cigarettes, uncomplicated (principal); I21.4 Non-ST elevation (NSTEMI) myocardial infarction; Z95.5 Presence of coronary angioplasty implant and graft; J44.9 Chronic obstructive pulmonary disease, unspecified; I25.10 Atherosclerotic heart disease of native coronary artery without angina pectoris; I65.21 Occlusion and stenosis of right carotid artery; Z89.612 Acquired absence of left leg above knee; Z89.611 Acquired absence of right leg above knee; E11.51 Type 2 diabetes mellitus with diabetic peripheral angiopathy without gangrene; E78.5 Hyperlipidemia, unspecified; I10 Essential (primary) hypertension; Z85.828 Personal history of other malignant neoplasm of skin; Z79.4 Long term (current) use of insulin; Z71.6 Tobacco abuse counseling; T82.855A Stenosis of coronary artery stent, initial encounter; Y83.1 Surgical operation with implant of artificial internal device as the cause of abnormal reaction of the patient, or of later complication, without mention of misadventure at the time of the procedure
CPT/HCPCS: 36415; 71045; 71275; 80048; 80061; 82962; 83735; 83880; 84484; 85007; 85025; 85347; 92928; 92941; 93005; 93308; 93458; 99152; 99153; 99285; C1725; C1769; C1875; C1876; C9600; C9606; C9803; G0378; J1644; Q9967; U0003; U0005